=== PATIENT | female | born 1960 | race Caucasian/White ===

== ENCOUNTER 2017-12-05 09:37 | Inpatient (IN) | payer MEDICARE, OTHER ==
--- NOTE | 2017-12-05 10:55 | RAD ---
PORTABLE CHEST 1 VIEW: DATE: 12/05/17. TIME: 8:09 a.m. HISTORY: Chest pain. FINDINGS/IMPRESSION: The heart size is borderline. The aorta is tortuous. The lungs are expanded without lobar consolida tion, pneumothoraces, glendy pulmonary edema, or large effusions. POS: REID
[2017-12-05 10:56] LABS: ALT (SGPT) 11 U/L (8-55); AST (SGOT) 21 U/L (5-34); Albumin 3.2 g/dL (3.5-5.0); Alkaline Phosphatase 114 U/L (40-150); Anion Gap 12 mmol/L (10-20); BUN (Urea Nitrogen) 28 mg/dL (9.8-20.1); Bilirubin, Total 0.4 mg/dL (0.2-1.2); CK (CPK) 65 U/L (29-168); Calc. Creatinine Clearance 0 mL/min (70-130); Calcium 9.3 mg/dL (7.8-10.44); Carbon Dioxide 33 mmol/L (22-29); Chloride 90 mmol/L (98-107); Estimated GFR-MDRD 36; Globulin 3.8 g/dL (2.4-3.5); Glucose 120 mg/dL (70-105); Sodium 132 mmol/L (136-145)
[2017-12-05 11:01] LABS: CKMB 0.6 ng/mL (0-6.6); Troponin I 0.017 ng/mL (< 0.028)
[2017-12-05 11:04] LABS: #Lymphocytes 0.4 thou/uL (1.20-3.40); #Monocytes 0.2 thou/uL (0.11-0.59); %Basophils 0.5 % (0.0-1.0); %Eosinophils 0.6 % (0.0-10.0); %Lymphocytes 10.4 % (21.0-51.0); %Monocytes 4.2 % (0.0-10.0); %Neutrophils 84.3 % (42.0-75.0); Hemoglobin 12.3 g/dL (12.0-16.0); Mean Corpuscular HGB CONC 33.4 g/dL (32.0-36.0); Mean Corpuscular Hemoglobin 31.3 pg (27.0-31.0); Mean Corpuscular Volume 93.7 fl (81.0-99.0); PLT Morphology Comment Appears Decreased; Platelet Count 94 thou/uL (130-400); RBC Distribution Width 13.1 % (11.5-14.5); Red Blood Cell (RBC) Count 3.93 mill/uL (4.20-5.40); White Blood Cell (WBC) Count 3.6 thou/uL (4.8-10.8)
[2017-12-05 11:07] LABS: Potassium 2.9 mmol/L (3.5-5.1)
[2017-12-05] MEDS ORDERED: Potassium Chloride 20 MEQ TAB ONE (11:09)
[2017-12-05] MEDS ORDERED: Vancomycin HCl 1 GM in Premix Bag 1 BAG IVPB SCH (11:15)
[2017-12-05] MEDS ORDERED: Azithromycin 500 MG in Sodium Chloride 0.9% 250 ML 250 ML IVPB SCH (11:15)
[2017-12-05 14:30] LABS: Troponin I 0.026 ng/mL (< 0.028)
[2017-12-05] MEDS ORDERED: Ondansetron HCl/PF 4 MG/2 ML Vial IVP PRN (15:15)
[2017-12-05] MEDS ORDERED: Ondansetron ODT 4 MG TAB SL PRN (15:15)
[2017-12-05 15:19] VITALS: BMI 35.8
[2017-12-05] MEDS ORDERED: Acetaminophen 325 MG TAB PO PRN (15:28)
[2017-12-05] MEDS ORDERED: Guaifenesin DM 100-10/5 ML UDCUP PO PRN (16:00)
--- NOTE | 2017-12-05 17:00 | CON ---
DATE OF CONSULTATION: 12/05/2017 CONSULTING PHYSICIAN: Dr. Gaming. REASON FOR CONSULTATION: Chest congestion. HISTORY OF PRESENT ILLNESS: History is obtained by speaking with the patient and by reviewing records in her chart. She is an unfortunate 57-year-old female who has multitude medical problems. She came to the ER today with an 11- day history of cough, fever up to 100.5 and postnasal drip. She has also been more short of breath over the last couple of days. Her mother just got discharged from the hospital. The patient says her mother was in the hospital because of influenza. The patient apparently did not take a flu shot and does not know whether or not she was previously flu tested. PAST MEDICAL AND SURGICAL HISTORY: 1. Stroke 2. Anemia. 3. Hyperparathyroidism, requiring parathyroid removal. 4. Nephrogenic systemic fibrosis. 5. Degenerative joint disease. 6. Neuropathy. 7. Bipolar disorder. 8. Obesity. 9. Mitral valve insufficiency. 10. Chronic atrial fibrillation. 11. Vasculitis. 12. Seizure disorders. 13. Brain aneurysm. 14. Cardiac ablation. 15. Vascular access placement for photophoresis. 16. Right knee graft placement. 17. Skin grafts. 18. Tonsillectomy. 19. Ventricular peritoneal shunt. 20. Placement of a spinal stimulator. ALLERGIES: Multiple and include CEFUROXIME, KETOROLAC, CIPRO, TRAMADOL, ANTI- INFLAMMATORY MEDICATIONS, PENICILLIN, TETRACYCLINE, SULFA, ASPIRIN, ACETAMINOPHEN, NAPROXEN, AMPICILLIN, LAMICTAL and CEFEPIME. SOCIAL HISTORY: Smoked up until 1989. Does not smoke currently. Does not use alcohol. FAMILY MEDICAL HISTORY: Otherwise, unremarkable. MEDICATIONS PRIOR TO ADMISSION: Requip, hydroxyzine, Benadryl, Ambien, vitamin B complex, vitamin A, Coenzyme Q10, [place] Thyroid, Restasis, ranitidine, multivitamin, vitamin B5, Robaxin, DuoNeb, grape seed extract, folate, iron sulfate, Epogen, Depakote, Lanoxin, cranberry, cholecalciferol, calcitriol, Bromaline, biotin, [place] eyedrops, ascorbic acid and amiodarone. REVIEW OF SYSTEMS: Notable for congestion; previous tracheostomy; pacemaker for the heart, it is actually placed in her abdomen because they had to obtain access through femoral vein; diffuse chronic rash bilaterally, otherwise 12- point review of systems negative. PHYSICAL EXAMINATION: VITAL SIGNS: Temperature 98.5, pulse 102, respirations 14 and O2 sat 93% on 3 liters. HEENT: She is wearing dark glasses because of light. Oropharynx clear. NECK: No JVD. She has a previous midline tracheostomy placement scar, which is well healed. LUNGS: Coarse breath sounds bilaterally with some crackles at the bases. CARDIAC: S1 and S2 regular. ABDOMEN: Soft, obese and nontender. EXTREMITIES: She has diffuse edematous rash over extremities bilaterally. LABORATORY DATA: Sodium 132, potassium 2.9, chloride 90, CO2 of 33, BUN 28, creatinine 1.4 and glucose 120. White blood cell count 3.6, hematocrit 36.8 and platelet count 94. IMAGING DATA: Her chest x-ray was reviewed personally by myself. It shows fairly clear lung wall. There is no evidence of effusion. She has some leads present posterior to her heart; I think these are probably spinal stimulation electrodes. I do not see any cardiac pacer leads. ASSESSMENT: 1. Upper respiratory infection - no evidence of pneumonia on x-ray. 2. Multiple allergies. 3. History of nephrogenic systemic fibrosis. 4. Hyperparathyroidism. 5. History of chronic atrial fibrillation and chronic cardiac problems. RECOMMENDATIONS: Agree with the azithromycin, steroids and breathing treatments. I will give her some cough suppressant medication if needed. I would suggest consulting her quality control expert if her heart becomes more of a concern. Influenza rapid test has been ordered. 70 minutes time was spent on this consultation. Of those 70 min, greater than 50% of the time was spent on counseling and coordination of care MTDD
[2017-12-05 17:03] LABS: Troponin I 0.028 ng/mL (< 0.028)
--- NOTE | 2017-12-05 17:47 | HP ---
PRIMARY CARE PROVIDER: Dr. Butler. ORTHOPAEDIC TECHNOLOGIST: Eric Bautista M.D. SUPERVISOR FLOOR ASSEMBLY: Stevie Jackson M.D. HISTORY OF PRESENT ILLNESS: The patient states she has had a cough for 11 days, scant production occ asionally green, occasional streaks of blood. She is short of breath all the time rest, walking and lying. She states she is not very mobile. She has had some nausea, vomiting, diarrhea, and no blood in her emesis or her stools. She has had fever off and on up to 101.8. She has had night sweats da emmie. She was seen in the emergency room, diagnosis of pneumonia was made and she was referred for ad mission. PAST MEDICAL HISTORY: Extensive. She has a recent diagnosis of heart failure based on a BNP, but st ates she has not had an echocardiogram. She has a history of atrial fibrillation with rapid ventricu lar response. She has a history of a cerebrovascular accident in the past, chronic anemia, hyperpara thyroidism, degenerative joint disease, chronic neuropathy, nephrogenic systemic fibrosis, bipolar il lness, obesity, mitral valve insufficiency, chronic atrial fibrillation, lymphedema, chronic anticoag ulation secondary to chronic atrial fibrillation and vasculitis. She has had acute kidney failure, r equiring dialysis in the past. She has had seizures in the past. She has had a history of a brain a neurysm, status post coiled MAKEUP ARTIST shunt placement. PAST SURGICAL HISTORY: Post-EP evaluation, post-cardioversion, post-right vascular access placement, right total knee replacement, skin graft, cataract surgery, tonsillectomy, MAKEUP ARTIST shunt in 2000, hystere ctomy, and history of spinal stimulator. ALLERGIES: AMPICILLIN, CEFTIN, CIPRO, CLINDAMYCIN, DIFLUCAN, DOXYCYCLINE, FLAGYL, FOSFOMYCIN, LEVAQU IN, PENICILLIN, SULFA, TETRACYCLINE, ASPIRIN, CEFEPIME, GADOLINIUM CONTRAST, LINEZOLID, METRONIDAZOLE , MORPHINE, NSAIDS, OXYCODONE, SEROQUEL, TORADOL, TYLENOL, ZOLOFT, and LAMICTAL. CURRENT MEDICATIONS: Albuterol 2.5 nebulizer solution every 4 hours as needed, vitamin C and B compl ex, betamethasone cream, biotin tablets, budesonide 0.25 mg per 2 mL nebulizer once a day, Bumex 2 mg a day, Coenzyme Q10, cranberry, cyclobenzaprine 10 mg t.i.d. p.r.n., cyclosporine ophthalmic emulsio n, Costanzi solution swish and swallow every 6 hours as needed, Depakote 500 mg q.24 hours twice a da y, folic acid, hydromorphone 4 mg q.4 hours p.r.n., hydroxyzine 1 tablet every 8 hours p.r.n. itching , Keppra 500 mg twice a day, lorazepam 0.5 mg every 8 hours as needed, Zofran tablets 1 every 8 hours as needed, Requip 1 mg at night, Thyroid 90 mg tablets daily, timolol ophthalmic solution, tizanidin e 4 mg a day, and zolpidem 5 mg at bedtime. SOCIAL HISTORY: Former smoker. FULL CODE status. No alcohol. Next of kin is her mother. FAMILY HISTORY: No inheritable diseases. Mother is 78, alive and well. REVIEW OF SYSTEMS: Constitutional: Syncope last night, fell in the bathroom. She has had dizzy spe lls several times a day for 8 months. Eyes: She wears dark glasses. No double vision or blurred vi sheldon. She states she has glaucoma. Ears, Nose and Throat: Some dysphagia x4 days, has a history of same. No ear pain or drainage. No nasal bleeding. Cardiac: No chest pains, orthopnea or paroxysm al nocturnal dyspnea. Respirations: See present illness. Gastrointestinal: No abdominal pain. Ge nitourinary: No gross hematuria, no dysuria. Musculoskeletal: Swells in her hands and both legs. Neurologic: She had a stroke, seizures in 2000 from a brain aneurysm. Psychiatric: Bipolar. Skin: Dry skin. Heme/Lymph: No tender or swollen lymph nodes in axilla, inguinal or cervical area. PHYSICAL EXAMINATION: GENERAL: She is alert, oriented, and cooperative, in no distress. VITAL SIGNS: Pulse 102, temperature 98.5, respirations 14, O2 sat 93% on 3 liters, and blood pressur e 99/65. HEENT: Examination of her head, eyes, ears, nose, and throat reveal pupils equal, round, and reactiv e to light. Extraocular movements are intact. Sclerae are white. Tympanic membranes clear. Nose i s clear. Oral mucous membranes are wet. NECK: Supple, without jugular venous distention, adenopathy or thyromegaly. CHEST: Clear to percussion. She has coarse breath sounds and rhonchi in all wall. No focal findi ngs. HEART: Irregular rate and rhythm. First and second heart sounds were variable, 2/6 systolic murmur. ABDOMEN: Soft, bowel sounds normal. No hepatosplenomegaly, no mass, no rebound. EXTREMITIES: Reveal no cyanosis or clubbing. She has some stasis edema in her legs. SKIN: She has some chronic skin changes of stasis edema in her legs, some thinning of the skin of he r hands, some scattered bruising. HEME/LYMPH: No tender or swollen lymph nodes in axilla, inguinal or cervical area. NEUROLOGIC: Deep tendon reflexes grossly symmetric. Cranial nerves II through XII are intact. Move s all extremities. LABORATORY AND X-RAY FINDINGS: EKG: Atrial fibrillation with nonspecific ST-T changes, rate control led. Chest x-ray shows no evidence of acute pneumonia or CHF. Heart size appears normal, reviewed b y me. Sodium 132, potassium 2.9, chloride 90, CO2 of 33, BUN 28, creatinine 1.49, blood sugar 120. Troponins are normal x2. BNP is 134. White count 3.6, hemoglobin 12.3, and platelet count 94,000. ADMITTING DIAGNOSES: 1. Acute respiratory failure, hypoxemia. 2. Acute asthmatic bronchitis. 3. Atrial fibrillation with controlled response. 4. Nephrogenic systemic sclerosis. 5. Chronic anticoagulation. 6. Hypothyroidism. 7. Mitral insufficiency. 8. Seizure disorder. 9. Bipolar syndrome. PLAN: The patient was admitted to the ER with pneumonia, but I see no evidence of pneumonia. She do es have some lung disease with acute respiratory hypoxemic failure. She will be placed on O2, steroi ds, and nebs when adequately entered her home medicines will be continued. Dr. Rubalcava has been cons ulted for assistance in this case.
[2017-12-05] MEDS ORDERED: Albuterol Sulfate 2.5 mg/3 ml Neb NEB PRN (18:17)
[2017-12-05] MEDS ORDERED: Nystatin Powder 15 GM BOT TOP PRN (18:17)
[2017-12-05] MEDS ORDERED: EPINEPHrine 1 MG/10 ML Abboject SYRINGE IVP PRN (18:17)
[2017-12-05] MEDS ORDERED: [UNRECOGNIZED DRUG - REMARK] PO PRN (18:17)
[2017-12-05] MEDS ORDERED: Nystatin Cream 30 GM TUBE TOP PRN (18:17)
[2017-12-05] MEDS ORDERED: Benzonatate 100 MG CAP PO PRN (18:17)
[2017-12-05] MEDS ORDERED: Loratadine/Pseudoephedrine 10/240 mg Tablet PO PRN (18:17)
[2017-12-05] MEDS: rOPINIRole HCl 1 MG TAB PO SCH (20:40)
[2017-12-05] MEDS: levETIRAcetam 500 MG TAB PO SCH (20:40)
[2017-12-05] MEDS: Ondansetron ODT 4 MG TAB PO SCH (20:41)
[2017-12-05] MEDS: Lidocaine Patch Removal 1 EACH TOP SCH (20:41)
[2017-12-05] MEDS: Zolpidem Tartrate 5 MG TAB PO PRN (20:45)
[2017-12-05] MEDS ORDERED: BETAMETHASONE TOP SCH (21:00)
[2017-12-05] MEDS ORDERED: [UNRECOGNIZED DRUG - OTHER] TOP SCH (21:00)
[2017-12-05] MEDS ORDERED: PROPYLENE GLYC TOP SCH (21:00)
[2017-12-05] MEDS ORDERED: GRAPE SEED EXTRACT PO SCH (21:00)
[2017-12-06] MEDS: Ondansetron ODT 4 MG TAB PO SCH ×3 (06:16→20:21)
[2017-12-06 06:18] LABS: Hemoglobin 13.3 g/dL (12.0-16.0); MDiff Complete? YES; Mean Corpuscular HGB CONC 32.9 g/dL (32.0-36.0); Mean Corpuscular Volume 94.3 fl (81.0-99.0); Mean Platelet Volume 8.7 fL (7.4-10.4); Platelet Count 96 thou/uL (130-400); RBC Distribution Width 13.1 % (11.5-14.5); Red Blood Cell (RBC) Count 4.29 mill/uL (4.20-5.40); White Blood Cell (WBC) Count 1.4 thou/uL (4.8-10.8)
[2017-12-06 06:19] LABS: Band 5 % (5-11); Lymphocytes 34 % (21-51); Monocytes 4 % (0-10); Neutrophil 56 % (42-75); Reactive Lymphocytes 1 % (0-10)
[2017-12-06 06:20] LABS: Anion Gap 12 mmol/L (10-20); BUN (Urea Nitrogen) 24 mg/dL (9.8-20.1); Calc. Creatinine Clearance 75 mL/min (70-130); Calcium 9.5 mg/dL (7.8-10.44); Carbon Dioxide 32 mmol/L (22-29); Chloride 94 mmol/L (98-107); Estimated GFR-MDRD 41; Glucose 142 mg/dL (70-105); Potassium 3.8 mmol/L (3.5-5.1); Sodium 134 mmol/L (136-145)
[2017-12-06] MEDS: Budesonide 0.25 MG/2 ML NEB NEB SCH (06:58)
--- NOTE | 2017-12-06 08:51 | PRG ---
DATE OF SERVICE: 12/06/2017 SUBJECTIVE: She did not sleep very well last night. Her influenza A test came back positive. OBJECTIVE: VITAL SIGNS: Temperature is 97.5, pulse 85, respirations 16, O2 sat 93% on 2 liters. HEENT: Unremarkable. NECK: No JVD. LUNGS: Less rhonchi than yesterday, but still some present. CARDIAC: S1 and S2 regular. ABDOMEN: Soft. EXTREMITIES: Trace edema. LABORATORY DATA: White blood cell count 1.4, hematocrit 40, platelet count 96. Sodium 134, potassiu m 3.8, chloride 94, CO2 32, BUN 24, creatinine 1.3, glucose 142. Cultures are growing out gram posit kady cocci 2 of 2 bottles. Of note, at least one of the specimens was drawn from the right femoral in dwelling catheter. ASSESSMENT: 1. Catheter related sepsis - patient has a chronic indwelling catheter that she has used for photoph oresis as an outpatient. 2. Influenza type A. 3. Multiple medical problems addressed in yesterday's note including a nephrogenic systemic fibrosis , hyperparathyroidism, and multiple allergies. RECOMMENDATIONS: 1. Continue IV antibiotics with Zithromax and vancomycin. 2. Consider ID opinion or removal of the catheter in the leg. 3. Probably too late for Tamiflu to be of any benefit in this patient for flu. She has had symptoms for over a week. I will leave that up to the primary team.
[2017-12-06] MEDS ORDERED: (Biotin [Biotin] 300 MCG) PO SCH (09:00)
[2017-12-06] MEDS ORDERED: Vancomycin HCl 1.5 GM in Sodium Chloride 0.9% 250 ML 300 ML IVPB SCH (09:00)
[2017-12-06] MEDS ORDERED: (Cranberry [Cranberry] 500 MG) PO SCH (09:00)
--- NOTE | 2017-12-06 09:07 | PDOC.PN ---
- Subjective Encounter Start Date: 12/06/17 Encounter Start Time: 09:04 Subjective: still doesnt feel well - Objective Resuscitation Status: Resuscitation Status FULL:Full Resuscitation MAR Reviewed: Yes Vital Signs & Weight: Vital Signs (12 hours) Temp Pulse Resp BP Pulse Ox 12/06/17 06:55 85 16 93 L 12/06/17 05:58 97.5 F L 97 18 130/73 95 12/06/17 01:31 98.1 F 100 18 124/74 93 L 12/06/17 00:27 16 Result Diagrams: 12/06/17 04:50 12/06/17 04:50 Phys Exam - Physical Examination Neck: no JVD coarse BS, non focal Cardiovascular: RRR, no significant murmur Gastrointestinal: soft, positive bowel sounds Musculoskeletal: no edema Dx/Plan (1) Acute respiratory failure with hypoxia Code(s): J96.01 - ACUTE RESPIRATORY FAILURE WITH HYPOXIA Status: Acute (2) Acute asthmatic bronchitis Code(s): J45.909 - UNSPECIFIED ASTHMA, UNCOMPLICATED Status: Acute (3) Influenza B Code(s): J10.1 - FLU DUE TO OTH IDENT INFLUENZA VIRUS W OTH RESP MANIFEST Status: Acute (4) Afib Code(s): I48.91 - UNSPECIFIED ATRIAL FIBRILLATION Status: Chronic Qualifiers: Atrial fibrillation type: paroxysmal Qualified Code(s): I48.0 - Paroxysmal atrial fibrillation Comment: Status post ablation, presently sinus (5) Bipolar 1 disorder Code(s): F31.9 - BIPOLAR DISORDER, UNSPECIFIED Status: Chronic Comment: Patient refused oral depakote. Subsequently changed back to IV. (6) Chronic anemia Code(s): D64.9 - ANEMIA, UNSPECIFIED Status: Chronic Comment: Procrit as per Nephrology. (7) GERD (gastroesophageal reflux disease) Code(s): K21.9 - GASTRO-ESOPHAGEAL REFLUX DISEASE WITHOUT ESOPHAGITIS Status: Chronic (8) Nephrogenic systemic fibrosis Code(s): L90.8 - OTHER ATROPHIC DISORDERS OF SKIN Status: Chronic (9) Seizure disorder Code(s): G40.909 - EPILEPSY, UNSP, NOT INTRACTABLE, WITHOUT STATUS EPILEPTICUS Status: Chronic Comment: Continue depakote (10) Bacteremia associated with IV line Code(s): T82.7XXA - INFECT/INFLM REACT D/T OTH CARDI/VASC DEV/IMPLNT/GRFT, INIT ; R78.81 - BACTEREMIA Status: Acute - Plan 2/2 blood C&S pos gm pos cocci -: has indwelling R groin caath- DC. start periferal iv -: iv vanc plus zithromax -: cont nebs steroids. too late for tamiflu * .
[2017-12-06] MEDS: Cyclobenzaprine 10 MG TAB PO SCH (09:25)
[2017-12-06] MEDS: Ascorbic Acid 500 mg Chewable Tablet PO SCH (09:25)
[2017-12-06] MEDS: Lactinex Tablet PO SCH (09:25)
[2017-12-06] MEDS: levETIRAcetam 500 MG TAB PO SCH ×2 (09:26→20:20)
[2017-12-06] MEDS: Folic Acid 1 MG TAB PO SCH (09:28)
[2017-12-06] MEDS: Multivit, Therapeutic 1 TAB PO SCH (09:28)
[2017-12-06] MEDS: Vitamin A 10,000 UNITS CAP PO SCH (09:29)
[2017-12-06] MEDS: tiZANidine HCl 4 MG TAB PO SCH ×2 (09:29→13:03)
[2017-12-06] MEDS: Lubiprostone 24 MCG CAP PO SCH ×2 (09:30→18:34)
[2017-12-06] MEDS: Ubidecarenone 50 MG CAP PO SCH (09:30)
[2017-12-06] MEDS: Bumetanide 1 MG TAB PO SCH (09:31)
[2017-12-06] MEDS: Stress 600 With Zinc 1 TAB PO SCH (09:31)
[2017-12-06] MEDS: Heparin 1,000 UNITS/ML VIAL SLOW IVP SCH ×2 (09:32→10:46)
[2017-12-06] MEDS: Lidocaine 5% Patch TD SCH (09:33)
[2017-12-06] MEDS: F EA EYE SCH (09:34)
[2017-12-06] MEDS: cycloSPORINE 0.05% Ophthalmic Droperette EA EYE SCH (09:35)
[2017-12-06] MEDS: Vancomycin HCl 1.5 GM in Sodium Chloride 0.9% 250 ML 300 ML IVPB SCH (10:45)
[2017-12-06] MEDS: Azithromycin 500 MG in Sodium Chloride 0.9% 250 ML 250 ML IVPB SCH (13:02)
[2017-12-06] MEDS: HYDROmorphone 2 MG TAB PO PRN ×3 (13:06→23:29)
[2017-12-06] MEDS ORDERED: FLU VACC QS2017-18 36 mo. & older 0.5 ML SYRINGE IM ONE (19:45)
[2017-12-06] MEDS: rOPINIRole HCl 1 MG TAB PO SCH (20:20)
[2017-12-06] MEDS: Lidocaine Patch Removal 1 EACH TOP SCH (20:21)
[2017-12-06] MEDS: Zolpidem Tartrate 5 MG TAB PO PRN (21:10)
[2017-12-07] MEDS ORDERED: Metoprolol Tartrate 25 MG TAB PO SCH (02:30)
[2017-12-07 02:59] LABS: #Lymphocytes 0.4 thou/uL (1.20-3.40); #Monocytes 0.2 thou/uL (0.11-0.59); #Neutrophils 3.2 thou/uL (1.40-6.50); %Basophils 0.9 % (0.0-1.0); %Eosinophils 0.3 % (0.0-10.0); %Lymphocytes 10.3 % (21.0-51.0); %Monocytes 5.3 % (0.0-10.0); %Neutrophils 83.2 % (42.0-75.0); Hemoglobin 12.1 g/dL (12.0-16.0); Mean Corpuscular HGB CONC 33.9 g/dL (32.0-36.0); Mean Corpuscular Hemoglobin 31.9 pg (27.0-31.0); Mean Corpuscular Volume 94.2 fl (81.0-99.0); Mean Platelet Volume 8.2 fL (7.4-10.4); Platelet Count 108 thou/uL (130-400); RBC Distribution Width 13.3 % (11.5-14.5); Red Blood Cell (RBC) Count 3.79 mill/uL (4.20-5.40); White Blood Cell (WBC) Count 3.8 thou/uL (4.8-10.8)
[2017-12-07 03:00] LABS: Anion Gap 11 mmol/L (10-20); BUN (Urea Nitrogen) 28 mg/dL (9.8-20.1); Calc. Creatinine Clearance 69 mL/min (70-130); Calcium 9.4 mg/dL (7.8-10.44); Carbon Dioxide 33 mmol/L (22-29); Chloride 94 mmol/L (98-107); Estimated GFR-MDRD 37; Glucose 205 mg/dL (70-105); Potassium 3.3 mmol/L (3.5-5.1); Sodium 135 mmol/L (136-145)
[2017-12-07] MEDS: HYDROmorphone 2 MG TAB PO PRN ×2 (05:39→16:33)
[2017-12-07] MEDS: Ondansetron ODT 4 MG TAB PO SCH ×3 (05:39→20:21)
[2017-12-07] MEDS: Budesonide 0.25 MG/2 ML NEB NEB SCH (06:54)
[2017-12-07] MEDS: Lidocaine 5% Patch TD SCH (08:59)
[2017-12-07] MEDS: Lactinex Tablet PO SCH (09:00)
[2017-12-07] MEDS: Cyclobenzaprine 10 MG TAB PO SCH (09:00)
[2017-12-07] MEDS: Ubidecarenone 50 MG CAP PO SCH (09:01)
[2017-12-07] MEDS: Bumetanide 1 MG TAB PO SCH (09:01)
[2017-12-07] MEDS: Lubiprostone 24 MCG CAP PO SCH ×2 (09:03→18:30)
[2017-12-07] MEDS: Ascorbic Acid 500 mg Chewable Tablet PO SCH (09:04)
[2017-12-07] MEDS: cycloSPORINE 0.05% Ophthalmic Droperette EA EYE SCH (09:05)
[2017-12-07] MEDS: Vitamin A 10,000 UNITS CAP PO SCH (09:05)
[2017-12-07] MEDS: levETIRAcetam 500 MG TAB PO SCH ×2 (09:05→20:17)
[2017-12-07] MEDS: Folic Acid 1 MG TAB PO SCH (09:05)
[2017-12-07] MEDS: tiZANidine HCl 4 MG TAB PO SCH ×2 (09:05→12:19)
[2017-12-07] MEDS: Heparin 1,000 UNITS/ML VIAL SLOW IVP SCH (09:05)
[2017-12-07] MEDS: Multivit, Therapeutic 1 TAB PO SCH (09:05)
[2017-12-07] MEDS: F EA EYE SCH (09:05)
[2017-12-07] MEDS: Stress 600 With Zinc 1 TAB PO SCH (09:05)
--- NOTE | 2017-12-07 09:07 | PDOC.PN ---
- Subjective Encounter Start Date: 12/07/17 Encounter Start Time: 09:05 Subjective: sharp, sticky chest pains, palpatotions - Objective Resuscitation Status: Resuscitation Status FULL:Full Resuscitation MAR Reviewed: Yes Vital Signs & Weight: Vital Signs (12 hours) Temp Pulse Resp BP Pulse Ox 12/07/17 07:37 98.4 F 91 16 129/81 91 L 12/07/17 06:54 91 16 12/07/17 05:52 98.4 F 95 20 106/71 95 12/07/17 05:15 98.3 F 106 H 18 108/69 94 L 12/07/17 00:10 116 H 18 88 L 12/06/17 21:20 107 H 18 86 L Weight Admit Weight 228 lb 8 oz Weight 228 lb 8 oz Result Diagrams: 12/07/17 02:30 12/07/17 02:30 Phys Exam - Physical Examination Neck: no JVD coarse, occ rhonchi Cardiovascular: irregular Gastrointestinal: soft, non-tender, positive bowel sounds Musculoskeletal: no edema Dx/Plan (1) Acute respiratory failure with hypoxia Code(s): J96.01 - ACUTE RESPIRATORY FAILURE WITH HYPOXIA Status: Acute (2) Acute asthmatic bronchitis Code(s): J45.909 - UNSPECIFIED ASTHMA, UNCOMPLICATED Status: Acute (3) Influenza B Code(s): J10.1 - FLU DUE TO OTH IDENT INFLUENZA VIRUS W OTH RESP MANIFEST Status: Acute (4) Afib Code(s): I48.91 - UNSPECIFIED ATRIAL FIBRILLATION Status: Chronic Qualifiers: Atrial fibrillation type: paroxysmal Qualified Code(s): I48.0 - Paroxysmal atrial fibrillation Comment: Status post ablation, presently sinus (5) Bipolar 1 disorder Code(s): F31.9 - BIPOLAR DISORDER, UNSPECIFIED Status: Chronic Comment: Patient refused oral depakote. Subsequently changed back to IV. (6) Chronic anemia Code(s): D64.9 - ANEMIA, UNSPECIFIED Status: Chronic Comment: Procrit as per Nephrology. (7) GERD (gastroesophageal reflux disease) Code(s): K21.9 - GASTRO-ESOPHAGEAL REFLUX DISEASE WITHOUT ESOPHAGITIS Status: Chronic (8) Nephrogenic systemic fibrosis Code(s): L90.8 - OTHER ATROPHIC DISORDERS OF SKIN Status: Chronic (9) Seizure disorder Code(s): G40.909 - EPILEPSY, UNSP, NOT INTRACTABLE, WITHOUT STATUS EPILEPTICUS Status: Chronic Comment: Continue depakote (10) Bacteremia associated with IV line Code(s): T82.7XXA - INFECT/INFLM REACT D/T OTH CARDI/VASC DEV/IMPLNT/GRFT, INIT ; R78.81 - BACTEREMIA Status: Acute - Plan cont iv vancomycin -: EKG, serial troponins, D-dimer * .
[2017-12-07] MEDS: Vancomycin HCl 1.5 GM in Sodium Chloride 0.9% 250 ML 300 ML IVPB SCH (09:14)
[2017-12-07] MEDS: Azithromycin 500 MG in Sodium Chloride 0.9% 250 ML 250 ML IVPB SCH (12:20)
--- NOTE | 2017-12-07 12:38 | PQF ---
CLINICAL DOCUMENTATION IMPROVEMENT CLARIFICATION FORM: ICD-10 Updated PLEASE DO AN ADDENDUM TO THE PROGRESS NOTE WITH ANY DOCUMENTATION UPDATES OR ADDITIONS AND CARRY THROUGH TO DC SUMMARY. THANK YOU. DATE: 12/07 ATTN: DR. NO PORTILLO Please exercise your independent, professional judgment in responding to the clarification form. Clinical indicators are provided on the bottom of this form for your review. Please check appropriate box(s): Conflicting documentation was noted in the Medical Record, please clarify if patient is being treated/monitored for: [ x ] CATHETER RELATED SEPSIS - PT HAS A CHRONIC INDWELLING CATHETER THAT SHE HAS USED FOR PHOTOPHORESIS AN OUTPT (PULMONOLOGY PN 12/06) [ ] BACTEREMIA ASSOCIATED WITH IV LINE, ACUTE (ATTENDING PN 12/06 & ) [ ] Other diagnosis [ ] Unable to determine For continuity of documentation, please document condition throughout progress notes and discharge summary. Thank You. CLINICAL INDICATORS - SIGNS / SYMPTOMS/ LABS ER NURSING DOCUMENTATION 12/05: R FEMORAL DL CENTRAL LINE CATHETER PRESENT ATTENDING PHYSICIAN H&P DOCUMENTATION 12/05: HX OF PRESENT ILLNESS: SHE HAS HAD FEVER OFF & ON UP TO 101.8. SHE HAS HAD NIGHT SWEATS DAILY. PHYSICAL EXAM: NE: 102 WBC: 3.6 ADMITTING DIAGNOSES: ACUTE RESPIRATORY FAILURE, HYPOXEMIA RISK FACTORS: POSITIVE BLOOD CULTURES 2 OF 2 (ONE FROM R FEMORAL CENTRAL LINE) GRAM POSITIVE COCCI FEVERS AT HOME (101.8 HIGHEST) INFLUENZA A TREATMENT: IV ANTIBIOTICS (VANCOMYCIN & AZITHROMYCIN 12/05 - PRESENT) REMOVAL OF R FEMORAL CENTRAL LINE THANK YOU! Julienne (This form is maintained as a part of the permanent medical record) 2015 [employer]. All Rights Reserved Julienne Barclay RN, BSN [email or web address] Office: [phone] [facility]ITAL[facility]ast[facility]
--- NOTE | 2017-12-07 13:34 | PRG ---
DATE OF SERVICE: 12/07/2017 SUBJECTIVE: The patient is doing reasonably well compared to the other day. OBJECTIVE: VITAL SIGNS: Temperature 98.1, pulse 113, respirations 20, O2 sat 89% on room air, and blood pressur e 139/88. HEENT: Unremarkable. NECK: No JVD. LUNGS: Fairly clear. CARDIAC: S1 and S2, regular. ABDOMEN: Soft. EXTREMITIES: Trace edema throughout. Cultures are growing alpha hemolytic strep. LABORATORY DATA: White blood cell count 3.8, hematocrit 35.7, platelet count 108. Sodium 135, potas sium 3.3, chloride 94, CO2 of 33, BUN 20, creatinine 1.4, glucose 205. ASSESSMENT: 1. Catheter related sepsis - She has indwelling right leg vascath for photophoresis. 2. Influenza B. 3. Multiple medical problems as listed above. RECOMMENDATIONS: I would advocate discontinuing the catheter if at all possible. For the time being , she is to continue on antibiotics and is showing improvement in the white blood cell count. I thin k we should go ahead and try to wean her steroid dose some.
--- NOTE | 2017-12-07 15:40 | EKG ---
Test Reason : Blood Pressure : / mmHG Vent. Rate : 101 BPM Atrial Rate : 108 BPM P-R Int : 000 ms QRS Dur : 134 ms QT Int : 340 ms P-R-T Axes : 000 -28 061 degrees QTc Int : 440 ms Indetrmiate rhythm due to artifact. Non-specific intra-ventricular conduction block Cannot rule out Anterior infarct , age undetermined Abnormal ECG Confirmed by NICOLE RAE ([id number]) on 12/07/2017 3:40:02 PM Referred By: Confirmed By:NICOLE RAE
--- NOTE | 2017-12-07 15:42 | EKG ---
Test Reason : Blood Pressure : / mmHG Vent. Rate : 097 BPM Atrial Rate : 122 BPM P-R Int : 000 ms QRS Dur : 100 ms QT Int : 354 ms P-R-T Axes : 000 -33 048 degrees QTc Int : 449 ms Atrial fibrillation Left axis deviation Low voltage QRS Abnormal ECG Confirmed by NICOLE RAE ([id number]) on 12/07/2017 3:42:17 PM Referred By: MANNY Confirmed By:NICOLE RAE
[2017-12-07 16:57] LABS: Troponin I 0.022 ng/mL (< 0.028)
[2017-12-07 20:07] LABS: Troponin I 0.022 ng/mL (< 0.028)
[2017-12-07] MEDS: rOPINIRole HCl 1 MG TAB PO SCH (20:20)
[2017-12-07] MEDS: Zolpidem Tartrate 5 MG TAB PO PRN (20:20)
[2017-12-07] MEDS: Lidocaine Patch Removal 1 EACH TOP SCH (20:21)
[2017-12-08] MEDS: Lorazepam 0.5 MG TAB PO PRN (00:18)
[2017-12-08] MEDS: HYDROmorphone 2 MG TAB PO PRN ×4 (00:18→23:59)
[2017-12-08] MEDS: Ondansetron ODT 4 MG TAB PO SCH ×3 (04:47→20:01)
[2017-12-08] MEDS: Budesonide 0.25 MG/2 ML NEB NEB SCH (07:57)
[2017-12-08] MEDS: Ondansetron ODT 4 MG TAB PO PRN ×2 (08:45→18:06)
[2017-12-08] MEDS: F EA EYE SCH (08:48)
[2017-12-08] MEDS: Bumetanide 1 MG TAB PO SCH (08:50)
[2017-12-08] MEDS: Lactinex Tablet PO SCH (08:50)
[2017-12-08] MEDS: tiZANidine HCl 4 MG TAB PO SCH (08:51)
[2017-12-08] MEDS: Lubiprostone 24 MCG CAP PO SCH ×2 (08:51→17:57)
[2017-12-08] MEDS: Ubidecarenone 50 MG CAP PO SCH (08:51)
[2017-12-08] MEDS: Cyclobenzaprine 10 MG TAB PO SCH (08:51)
[2017-12-08] MEDS: Heparin 1,000 UNITS/ML VIAL SLOW IVP SCH (08:52)
[2017-12-08] MEDS: Ascorbic Acid 500 mg Chewable Tablet PO SCH (08:52)
[2017-12-08] MEDS: Folic Acid 1 MG TAB PO SCH (08:52)
[2017-12-08] MEDS: Multivit, Therapeutic 1 TAB PO SCH (08:53)
[2017-12-08] MEDS: Stress 600 With Zinc 1 TAB PO SCH (08:53)
[2017-12-08] MEDS: levETIRAcetam 500 MG TAB PO SCH ×2 (08:53→19:58)
[2017-12-08] MEDS: cycloSPORINE 0.05% Ophthalmic Droperette EA EYE SCH (08:53)
[2017-12-08] MEDS: Vitamin A 10,000 UNITS CAP PO SCH (08:54)
[2017-12-08] MEDS: Lidocaine 5% Patch TD SCH (08:56)
[2017-12-08 08:59] LABS: Vancomycin, Trough 22.9 ug/mL
[2017-12-08] MEDS: Vancomycin HCl 1.5 GM in Sodium Chloride 0.9% 250 ML 300 ML IVPB SCH (09:03)
--- NOTE | 2017-12-08 09:50 | PRG ---
DATE OF SERVICE: 12/08/2017 SUBJECTIVE: The patient is basically complaining about everything that she can. OBJECTIVE: VITAL SIGNS: Temperature is 98.2, pulse 110, blood pressure 104/65, O2 sat 95% on 3.5 liters. HEENT: Unremarkable. NECK: No JVD. CHEST: Clear. CARDIAC: S1 and S2, regular. ABDOMEN: Soft. EXTREMITIES: She has the chronic skin changes over all extremities. LABORATORY DATA: White blood cell count 3.8, hematocrit 35.7, and platelet count 108. Cultures are growing alpha hemolytic strep. ASSESSMENT: 1. Catheter-related sepsis. 2. Influenza. PLAN: 1. Continue antibiotics. 2. Wean steroids as tolerated. 3. We would advise removal of the catheter in the leg.
--- NOTE | 2017-12-08 10:23 | PDOC.PN ---
- Subjective Encounter Start Date: 12/08/17 Encounter Start Time: 10:21 Subjective: less sob - Objective Resuscitation Status: Resuscitation Status FULL:Full Resuscitation MAR Reviewed: Yes Vital Signs & Weight: Vital Signs (12 hours) Temp Pulse Resp BP BP Pulse Ox 12/08/17 08:48 110 H 104/65 12/08/17 08:00 98.0 F 109 H 18 119/71 93 L 12/08/17 07:57 110 H 16 12/08/17 00:15 91 18 96 Weight Admit Weight 228 lb 8 oz Weight 228 lb 8 oz Result Diagrams: 12/07/17 02:30 12/07/17 02:30 Phys Exam - Physical Examination Neck: no JVD coarse BS with scattered rhonchi Cardiovascular: irregular 2/6 sys murmur Gastrointestinal: soft, positive bowel sounds Musculoskeletal: edema present Dx/Plan (1) Acute respiratory failure with hypoxia Code(s): J96.01 - ACUTE RESPIRATORY FAILURE WITH HYPOXIA Status: Acute (2) Acute asthmatic bronchitis Code(s): J45.909 - UNSPECIFIED ASTHMA, UNCOMPLICATED Status: Acute (3) Influenza B Code(s): J10.1 - FLU DUE TO OTH IDENT INFLUENZA VIRUS W OTH RESP MANIFEST Status: Acute (4) Afib Code(s): I48.91 - UNSPECIFIED ATRIAL FIBRILLATION Status: Chronic Qualifiers: Atrial fibrillation type: paroxysmal Qualified Code(s): I48.0 - Paroxysmal atrial fibrillation Comment: Status post ablation, presently sinus (5) Bipolar 1 disorder Code(s): F31.9 - BIPOLAR DISORDER, UNSPECIFIED Status: Chronic Comment: Patient refused oral depakote. Subsequently changed back to IV. (6) Chronic anemia Code(s): D64.9 - ANEMIA, UNSPECIFIED Status: Chronic Comment: Procrit as per Nephrology. (7) GERD (gastroesophageal reflux disease) Code(s): K21.9 - GASTRO-ESOPHAGEAL REFLUX DISEASE WITHOUT ESOPHAGITIS Status: Chronic (8) Nephrogenic systemic fibrosis Code(s): L90.8 - OTHER ATROPHIC DISORDERS OF SKIN Status: Chronic (9) Seizure disorder Code(s): G40.909 - EPILEPSY, UNSP, NOT INTRACTABLE, WITHOUT STATUS EPILEPTICUS Status: Chronic Comment: Continue depakote (10) Bacteremia associated with IV line Code(s): T82.7XXA - INFECT/INFLM REACT D/T OTH CARDI/VASC DEV/IMPLNT/GRFT, INIT ; R78.81 - BACTEREMIA Status: Acute - Plan still requiring O2 supplementation -: cont nebs, iv steroids -: cont iv antibx for bacteremia * .
[2017-12-08] MEDS: Vancomycin HCl 1.25 GM in Sodium Chloride 0.9% 250 ML 250 ML IVPB SCH (10:38)
[2017-12-08] MEDS: Azithromycin 500 MG in Sodium Chloride 0.9% 250 ML 250 ML IVPB SCH (13:30)
[2017-12-08] MEDS ORDERED: Lidocaine 1% w/Epinephrine 1:100K 20 ML VIAL FS SCH (17:00)
[2017-12-08] MEDS: rOPINIRole HCl 1 MG TAB PO SCH (20:00)
[2017-12-08] MEDS: Lidocaine Patch Removal 1 EACH TOP SCH (20:00)
[2017-12-08] MEDS: Zolpidem Tartrate 5 MG TAB PO PRN (20:04)
[2017-12-09] MEDS: HYDROmorphone 2 MG TAB PO PRN ×2 (05:54→12:55)
[2017-12-09] MEDS: Budesonide 0.25 MG/2 ML NEB NEB SCH (07:51)
[2017-12-09] MEDS: Ondansetron ODT 4 MG TAB PO SCH ×3 (08:22→21:39)
[2017-12-09] MEDS: Bumetanide 1 MG TAB PO SCH (08:31)
[2017-12-09] MEDS: Lubiprostone 24 MCG CAP PO SCH ×2 (08:31→18:11)
[2017-12-09] MEDS: Stress 600 With Zinc 1 TAB PO SCH (08:32)
[2017-12-09] MEDS: Vitamin A 10,000 UNITS CAP PO SCH (08:33)
[2017-12-09] MEDS: Lactinex Tablet PO SCH (08:33)
[2017-12-09] MEDS: Ascorbic Acid 500 mg Chewable Tablet PO SCH (08:34)
[2017-12-09] MEDS: tiZANidine HCl 4 MG TAB PO SCH (08:34)
[2017-12-09] MEDS: levETIRAcetam 500 MG TAB PO SCH ×2 (08:34→21:38)
[2017-12-09] MEDS: Multivit, Therapeutic 1 TAB PO SCH (08:35)
[2017-12-09] MEDS: Folic Acid 1 MG TAB PO SCH (08:35)
[2017-12-09] MEDS: Cyclobenzaprine 10 MG TAB PO SCH (08:35)
[2017-12-09] MEDS: Ubidecarenone 50 MG CAP PO SCH (08:36)
[2017-12-09] MEDS: Heparin 1,000 UNITS/ML VIAL SLOW IVP SCH (08:36)
[2017-12-09] MEDS: F EA EYE SCH (08:37)
[2017-12-09] MEDS: cycloSPORINE 0.05% Ophthalmic Droperette EA EYE SCH (08:38)
[2017-12-09] MEDS: Lidocaine 5% Patch TD SCH (08:39)
[2017-12-09] MEDS: Vancomycin HCl 1.25 GM in Sodium Chloride 0.9% 250 ML 250 ML IVPB SCH (08:54)
--- NOTE | 2017-12-09 09:48 | PDOC.PULPN ---
Progress Note: Subj/Obj - Subjective Date: 12/09/17 Time: 09:47 Narrative: She feels somewhat better. - Objective Allergies/Adverse Reactions: Allergies Allergy/AdvReac Type Severity Reaction Status Date / Time acetaminophen Allergy Verified 09/23/15 00:36 ampicillin Allergy Verified 09/23/15 00:36 aspirin Allergy Verified 09/23/15 00:36 cefepime Allergy Verified 09/23/15 00:36 cefuroxime axetil Allergy Verified 09/23/15 00:36 [From Ceftin] ciprofloxacin [From Cipro] Allergy Verified 09/23/15 00:36 ciprofloxacin HCl Allergy Verified 09/23/15 00:36 [From Cipro] ketorolac tromethamine Allergy Verified 09/23/15 00:36 [From Toradol] lamotrigine [From Lamictal] Allergy Verified 09/23/15 00:36 levofloxacin [From Levaquin] Allergy Verified 09/23/15 00:36 naproxen Allergy Verified 09/23/15 00:36 NSAIDS (Non-Steroidal Allergy Verified 09/23/15 00:36 Anti-Inflamma Penicillins Allergy Verified 09/23/15 00:36 Sulfa (Sulfonamide Allergy Verified 09/23/15 00:36 Antibiotics) Tetracyclines Allergy Verified 09/23/15 00:36 tramadol HCl [From Ultram] Allergy Verified 10/03/15 00:07 MAR Reviewed: Yes Vital Signs: Vital Signs Temp 98.2 F 12/09/17 07:23 Pulse 108 H 12/09/17 08:37 Resp 20 12/09/17 07:50 BP 130/73 12/09/17 08:37 Pulse Ox 96 12/09/17 07:51 Intake & Output 12/08/17 12/09/17 12/09/17 18:59 06:59 18:59 Other: Voiding Method Bedside Commode Bedside Commode Progress Note: Exam - Physical Exam Constitutional: NAD HEENT: oral pharynx no lesions Neck: no nodes, no JVD Cardiovascular: RRR Respiratory: clear to auscultation bilaterally Gastrointestinal: soft, non-tender Musculoskeletal: edema present Neurological: non-focal, moves all 4 limbs Deviation from normal: She has chronic rashes throughout her extremities. Progress Note: Data - Labs Result Diagrams: 12/07/17 02:30 12/07/17 02:30 Progress Note: A/P - Problems (1) Acute asthmatic bronchitis Current Visit: Yes Status: Acute Code(s): J45.909 - UNSPECIFIED ASTHMA, UNCOMPLICATED (2) Acute respiratory failure with hypoxia Current Visit: Yes Status: Acute Code(s): J96.01 - ACUTE RESPIRATORY FAILURE WITH HYPOXIA (3) Bacteremia associated with IV line Current Visit: Yes Status: Acute Code(s): T82.7XXA - INFECT/INFLM REACT D/T OTH CARDI/VASC DEV/IMPLNT/GRFT, INIT; R78.81 - BACTEREMIA (4) Pneumonia Current Visit: No Status: Acute Code(s): J18.9 - PNEUMONIA, UNSPECIFIED ORGANISM (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 She is continuing on antibiotics. The hospitalist team is checking labs tomorrow. I will be available over the weekend if help is needed on this case. Please call.
[2017-12-09] MEDS ORDERED: Lidocaine 1% (PF) 30 ML VIAL ONE (09:59)
--- NOTE | 2017-12-09 11:20 | PDOC.PN ---
- Subjective Encounter Start Date: 12/09/17 Encounter Start Time: 09:50 denies any complaints this morning or acute night events - Objective Resuscitation Status: Resuscitation Status FULL:Full Resuscitation Vital Signs & Weight: Vital Signs (12 hours) Temp Pulse Resp BP BP Pulse Ox 12/09/17 08:37 108 H 130/73 12/09/17 07:51 96 12/09/17 07:50 116 H 20 96 12/09/17 07:23 98.2 F 108 H 16 130/73 96 12/09/17 02:55 96 Weight Admit Weight 228 lb 8 oz Weight 228 lb 8 oz Result Diagrams: 12/07/17 02:30 12/07/17 02:30 Phys Exam - Physical Examination Constitutional: NAD HEENT: PERRLA, moist MMs, sclera anicteric Neck: no nodes, no JVD, supple Respiratory: no wheezing, clear to auscultation bilateral Cardiovascular: RRR, no significant murmur Gastrointestinal: soft, non-tender, no distention Musculoskeletal: pulses present Psychiatric: normal affect, A&O x 3 Dx/Plan (1) Acute asthmatic bronchitis Code(s): J45.909 - UNSPECIFIED ASTHMA, UNCOMPLICATED Status: Acute (2) Acute respiratory failure with hypoxia Code(s): J96.01 - ACUTE RESPIRATORY FAILURE WITH HYPOXIA Status: Acute (3) Bacteremia associated with IV line Code(s): T82.7XXA - INFECT/INFLM REACT D/T OTH CARDI/VASC DEV/IMPLNT/GRFT, INIT ; R78.81 - BACTEREMIA Status: Acute (4) Pneumonia Code(s): J18.9 - PNEUMONIA, UNSPECIFIED ORGANISM Status: Acute (5) Afib Code(s): I48.91 - UNSPECIFIED ATRIAL FIBRILLATION Status: Chronic Qualifiers: Atrial fibrillation type: paroxysmal Qualified Code(s): I48.0 - Paroxysmal atrial fibrillation Comment: Status post ablation, presently sinus (6) Influenza Code(s): J11.1 - FLU DUE TO UNIDENTIFIED INFLUENZA VIRUS W OTH RESP MANIFEST Status: Acute - Plan cont current plan of care, plan discussed w/ family, continue antibiotics * . repeat Blood cultures contine with Vanc consulted ID due to complexity of her case with allergy to multiple Abx will remove line from right lower extremity
[2017-12-09] MEDS: Azithromycin 500 MG in Sodium Chloride 0.9% 250 ML 250 ML IVPB SCH (11:41)
[2017-12-09] MEDS ORDERED: Lidocaine 1% w/Epinephrine 1:100K 20 ML VIAL FS SCH (12:00)
--- NOTE | 2017-12-09 19:33 | OP ---
PREOPERATIVE DIAGNOSES: Bacteremia; cuffed tunneled femoral vein catheter, right. POSTOPERATIVE DIAGNOSES: Bacteremia; cuffed tunneled femoral vein catheter, right. PROCEDURE PERFORMED: Removal of cuffed tunneled dual lumen large bore catheter, right femoral vein. SURGEON: Dr. Ignacio Hernandez. ANESTHESIA: A 1% Xylocaine with epinephrine at the bedside. PROCEDURE IN DETAIL: At the patient's bedside, catheter exit site right thigh prepared with ChloraPr ep. Local anesthetic infiltrated into skin and subcutaneous tissue. A 1% Xylocaine with epinephrine was used, 10 mL. Catheter and cuff dissected free, removed intact. There was no purulence. The pa tient tolerated the procedure well. Pressure held to hemostasis.
[2017-12-09] MEDS: Lidocaine Patch Removal 1 EACH TOP SCH (21:38)
[2017-12-09] MEDS: rOPINIRole HCl 1 MG TAB PO SCH (21:39)
[2017-12-09] MEDS: Zolpidem Tartrate 5 MG TAB PO PRN (21:41)
[2017-12-10] MEDS: HYDROmorphone 2 MG TAB PO PRN ×3 (00:08→21:08)
[2017-12-10] MEDS ORDERED: tiZANidine HCl 4 MG TAB PO SCH (03:30)
[2017-12-10] MEDS: Ondansetron ODT 4 MG TAB PO SCH ×3 (05:38→21:07)
[2017-12-10 05:42] LABS: #Eosinphils 0.1 thou/uL (0.0-0.7); #Lymphocytes 0.8 thou/uL (1.20-3.40); #Monocytes 0.3 thou/uL (0.11-0.59); #Neutrophils 4.4 thou/uL (1.40-6.50); %Basophils 0.7 % (0.0-1.0); %Eosinophils 1.6 % (0.0-10.0); %Lymphocytes 14.7 % (21.0-51.0); %Monocytes 5.6 % (0.0-10.0); %Neutrophils 77.4 % (42.0-75.0); Hemoglobin 12.6 g/dL (12.0-16.0); Mean Corpuscular HGB CONC 32.7 g/dL (32.0-36.0); Mean Corpuscular Hemoglobin 31.1 pg (27.0-31.0); Mean Corpuscular Volume 95.2 fl (81.0-99.0); Mean Platelet Volume 7.4 fL (7.4-10.4); Platelet Count 165 thou/uL (130-400); RBC Distribution Width 13.2 % (11.5-14.5); Red Blood Cell (RBC) Count 4.05 mill/uL (4.20-5.40); White Blood Cell (WBC) Count 5.7 thou/uL (4.8-10.8)
[2017-12-10 05:53] LABS: Anion Gap 11 mmol/L (10-20); BUN (Urea Nitrogen) 35 mg/dL (9.8-20.1); Calc. Creatinine Clearance 84 mL/min (70-130); Calcium 9.2 mg/dL (7.8-10.44); Carbon Dioxide 35 mmol/L (22-29); Chloride 95 mmol/L (98-107); Estimated GFR-MDRD 47; Glucose 163 mg/dL (70-105); Potassium 4.2 mmol/L (3.5-5.1); Sodium 137 mmol/L (136-145)
[2017-12-10] MEDS: Budesonide 0.25 MG/2 ML NEB NEB SCH (06:31)
--- NOTE | 2017-12-10 07:26 | CON ---
DATE OF CONSULT: 12/09/2017 HISTORY OF PRESENT ILLNESS: Merle Shoemaker is a 57-year-old female who lives in [place], has been seen by Esthela Caraballo for the past 11 years for some sort of etic therapy. For chronic dis ease, she has nephrogenic systemic fibrosis. She has had a previous sepsis from left femoral vein ca theter. She has a pacemaker. She is admitted because of chest congestion, has had fever and positiv e cultures. I have been asked to see her regarding removal of her right femoral vein cuffed tunnel c atheter as it is likely the source of her bacteremia. PAST MEDICAL HISTORY: Stoke, anemia, hyperparathyroidism, nephrogenic systemic fibrosis, degenerativ e joint disease, neuropathy, bipolar disease, obesity, mitral valve prolapse, mitral valve insufficie ncy, vasculitis, seizure disorders, history of brain aneurysm, and cardiac ablation, vascular access for photopheresis, right knee graft, placement of skin graft, tonsillectomy, [employer]ICE [employer]OR shunt, hydrocephalus, placement of a spinal stimulator. ALLERGIES: CEPHALOSPORINS, KETOROLAC, CIPRO, TRAMADOL, ANTI-INFLAMMATORY MEDICATION, PENICILLIN, TET RACYCLINE, SULFA, ASPIRIN, ACETAMINOPHEN, NSAIDs, AMPICILLIN, and CEFEPIME. SOCIAL HISTORY: The patient is tobacco cessation since 1989. Alcohol, none. PAST SURGICAL HISTORY: Pacemakers, spinal stimulator, parathyroid resection, right femoral vein, cuf fed tunnel catheter, large-bore dual lumen, left femoral vein catheter previously removed with open w ound and infection, requiring wound VAC for several weeks. PHYSICAL EXAMINATION: VITAL SIGNS: 5 feet 7, 228 pounds, 35 BMI, 98.3, 97. HEAD, EYES, EARS, NOSE AND THROAT: Unremarkable. LUNGS: Clear to auscultation. CARDIAC: Regular rate and rhythm without murmur or gallop. ABDOMEN: Soft, obese. EXTREMITIES: Unremarkable. Right femoral vein catheter scars left groin, upper thigh area from past history of infection and open wound healing secondarily. LABORATORIES: White count 3, hemoglobin 12. Basic metabolic profile: BUN 28, creatinine 1.46, GFR 37. ASSESSMENT AND PLAN: Bacteremia with likely source right femoral vein cuffed tunnel catheter, we wou ld recommend removal and I will do at the bedside. I have explained the procedure to the patient. S he is agreeable.
[2017-12-10] MEDS: Bumetanide 1 MG TAB PO SCH (08:34)
[2017-12-10] MEDS: Lubiprostone 24 MCG CAP PO SCH ×2 (08:34→17:05)
[2017-12-10] MEDS: Folic Acid 1 MG TAB PO SCH (08:35)
[2017-12-10] MEDS: Heparin 1,000 UNITS/ML VIAL SLOW IVP SCH (08:35)
[2017-12-10] MEDS: Lactinex Tablet PO SCH (08:35)
[2017-12-10] MEDS: Stress 600 With Zinc 1 TAB PO SCH (08:36)
[2017-12-10] MEDS: Ubidecarenone 50 MG CAP PO SCH (08:37)
[2017-12-10] MEDS: Vitamin A 10,000 UNITS CAP PO SCH (08:37)
[2017-12-10] MEDS: Multivit, Therapeutic 1 TAB PO SCH (08:38)
[2017-12-10] MEDS: Ascorbic Acid 500 mg Chewable Tablet PO SCH (08:38)
[2017-12-10] MEDS: cycloSPORINE 0.05% Ophthalmic Droperette EA EYE SCH (08:39)
[2017-12-10] MEDS: levETIRAcetam 500 MG TAB PO SCH ×3 (08:40→21:11)
[2017-12-10] MEDS: tiZANidine HCl 4 MG TAB PO SCH (08:40)
[2017-12-10] MEDS: F EA EYE SCH (08:40)
[2017-12-10] MEDS: Cyclobenzaprine 10 MG TAB PO SCH ×2 (08:41→14:41)
[2017-12-10] MEDS: Lidocaine 5% Patch TD SCH (08:51)
[2017-12-10 09:30] LABS: Vancomycin, Trough 21.2 ug/mL
[2017-12-10] MEDS: Vancomycin HCl 1 GM in Premix Bag 1 BAG IVPB SCH (10:20)
--- NOTE | 2017-12-10 10:21 | PDOC.PN ---
- Subjective Encounter Start Date: 12/10/17 Encounter Start Time: 09:00 no acute night events. denies fever or chills - Objective Resuscitation Status: Resuscitation Status FULL:Full Resuscitation Vital Signs & Weight: Vital Signs (12 hours) Temp Pulse Resp BP Pulse Ox 12/10/17 08:40 102 H 12/10/17 07:18 97.3 F L 102 H 16 117/71 95 12/10/17 06:31 86 18 96 12/10/17 04:00 97.6 F 87 20 124/78 95 12/10/17 00:39 93 L 12/10/17 00:11 98 18 93 L 12/10/17 00:00 98.4 F 102 H 20 113/77 94 L Weight Admit Weight 228 lb 8 oz Weight 228 lb 8 oz Result Diagrams: 12/10/17 05:16 12/10/17 05:16 Phys Exam - Physical Examination Constitutional: NAD HEENT: PERRLA, moist MMs, sclera anicteric Neck: no nodes, supple Respiratory: no wheezing, no rales, no rhonchi, clear to auscultation bilateral Cardiovascular: RRR, no significant murmur Gastrointestinal: soft, non-tender, no distention Musculoskeletal: no edema, pulses present Psychiatric: normal affect, A&O x 3 Dx/Plan (1) Acute asthmatic bronchitis Code(s): J45.909 - UNSPECIFIED ASTHMA, UNCOMPLICATED Status: Acute (2) Acute respiratory failure with hypoxia Code(s): J96.01 - ACUTE RESPIRATORY FAILURE WITH HYPOXIA Status: Acute (3) Bacteremia associated with IV line Code(s): T82.7XXA - INFECT/INFLM REACT D/T OTH CARDI/VASC DEV/IMPLNT/GRFT, INIT ; R78.81 - BACTEREMIA Status: Acute (4) Pneumonia Code(s): J18.9 - PNEUMONIA, UNSPECIFIED ORGANISM Status: Acute (5) Afib Code(s): I48.91 - UNSPECIFIED ATRIAL FIBRILLATION Status: Chronic Qualifiers: Atrial fibrillation type: paroxysmal Qualified Code(s): I48.0 - Paroxysmal atrial fibrillation Comment: Status post ablation, presently sinus (6) Influenza Code(s): J11.1 - FLU DUE TO UNIDENTIFIED INFLUENZA VIRUS W OTH RESP MANIFEST Status: Acute - Plan cont current plan of care, continue antibiotics * . pending repeat cultures continue with current IV abx line removed from right lower extremity pending consultation with
[2017-12-10] MEDS: Azithromycin 500 MG in Sodium Chloride 0.9% 250 ML 250 ML IVPB SCH (12:35)
--- NOTE | 2017-12-10 15:20 | CON ---
DATE OF CONSULTATION: 12/10/2017 REASON FOR CONSULTATION: Bacteremia. 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 Subsequently, she developed what has been described as nephrogenic systemic fibrosis following MRI contrast administration in the face of renal insufficiency. Since then, she has had photophoresis, which was concluded, I believe last January in [place] and she is not supposed to receive anymore photopheresis. For those procedures of photophoresis, she required IV access and has had numerous central line catheters placed and has had complications associated with those in the past. She also has chronic pain syndrome, which she describes as pain everywhere with a spinal stimulator in place. She has had a [employer] shunt placed for management of hydrocephalus and I had seen her in 2014 for possible UTI. The patient has extensive reported drug hypersensitivity reactions, which are not really well documented, but the list of antibiotics that she is allergic to is quite extensive, pretty much leaving only vancomycin and macrolides. Again, the documentation of those allergic reactions is not very well reported in the medical records and it is possible that some of those reported allergies do not reflect true hypersensitivity. At this time, she was admitted with fever and general malaise, some nausea and vomiting. The initial findings showed pulse 102, temperature 98.5, respiratory rate 12-14, O2 sat 92%, blood pressure 99/ 65. Chest was remarkable for a few expiratory wheezes. Heart exam showed irregular rate with chronic skin changes noted and she had a catheter in the right groin, which has been used for IV fluid administration intermittently for management of volume depletion. Initial impression was possible respiratory failure, asthmatic bronchitis, atrial fibrillation, nephrogenic systemic sclerosis. Subsequently, blood samples obtained during the admission process showed Streptococcus sanguinous, broad susceptibility profile noted except for clindamycin, erythromycin, and tetracycline. The patient has been given azithromycin, vancomycin with improvement. Repeat blood culture sets from the had been negative thus far. She also had a positive influenza A test. Currently, she is awake, seems to be back to her baseline symptoms of pain over her entire body and structures as her baseline is. No headaches, no visual symptoms, sore throat, odynophagia, dysphagia, mild dyspnea, no cough, no abdominal pain or diarrhea. She is actually constipated. She is voiding without difficulty. She is ambulatory at home only with assistance with a walker. PAST MEDICAL AND SURGICAL HISTORY: Prior CVA with aneurysm reported, hydrocephalus with [employer]PER[employer] shunt, systemic lupus erythematosus, which was not confirmed and she did receive Cytoxan treatment. MRI contrast associated systemic nephrogenic fibrosis, bipolar disorder, obesity, pancreatitis atrial fibrillation, multiple vascular accesses for photopheresis, spinal cord stimulator, hysterectomy. FAMILY HISTORY: Noncontributory. ALLERGIES: QUINOLONES, NAPROXEN, CEPHALOSPORINS, PENICILLINS, LINEZOLID. She states she is able to take Levaquin when she takes it with Benadryl. Also allergic to TETRACYCLINE and SULFA DRUGS. MEDICATIONS: Currently receiving Tylenol, Floranex, Ventolin, DuoNeb, vitamin C , azithromycin, Tessalon, Pulmicort, Bumex, Temovate, Flexeril, Folvite, heparin , Dilaudid, Atarax, Keppra, Claritin, Amitiza, Solu-Medrol, ondansetron, ropinirole, tizanidine, and vancomycin. SOCIAL HISTORY: Former smoker up to 1989. PHYSICAL EXAMINATION: VITAL SIGNS: T-max 98.7, blood pressure 117/71, pulse 102, respirations 16-22, O2 sat 95%. SKIN: Shows chronic skin changes with thinning of the dermis, some scars from prior soft tissue ulcers. She has a peripheral IV access in the left upper extremity and does not have [place] catheter. The area with the catheter was removed in the right groin without induration or drainage. No lymphadenopathy. HEENT: Ocular movements are conjugate. Sclerae white. Pupils are 2 mm and reactive. Oral cavity with still quite a few teeth in place in fairly decent shape, some periodontal disease. NECK: Supple. LUNGS: A few areas of expiratory wheezing noted particularly on the right side. HEART: S1, S2. Irregular rate. ABDOMEN: Soft. Not distended. No ascites or organomegaly. No bladder distention. EXTREMITIES: She is able to move extremities, but has diffuse weakness. Pulses are 1+ in dorsalis pedis. Spinal cord stimulator site does not appear to have inflammatory changes. The patient has a pacemaker in the left submammary region, which is not inflamed either. NEUROLOGIC: Cognitive function appears to be intact. LABORATORY DATA: White cell count is 5.7, hemoglobin 12, platelets 165, which is improved from my admission, neutrophil percentage has improved as well. The creatinine is at 1.19 with a GFR 47. Liver profile normal. Albumin 3.2, globulin 3.8 and the blood cultures has noted previously. I do not find influenza test. There is an echocardiogram from admission, which showed a normal ejection fraction and no valvular abnormalities. ASSESSMENT: 1. Nephrogenic systemic fibrosis reportedly associated with MRI contrast, having finished treatment for this last year. 2. Central line associated bacteremia secondary to strep sanguinis. No obvious sites of systemic spread at this point in time. 3. Multiple devices, which places her at risk for colonization of those devices in the near future. DISCUSSION: Patient has multiple allergic reactions reported to numerous antimicrobials, but seems to be tolerating vancomycin well. We will need placement of a PICC line and treatment for 2 weeks with IV vancomycin. Discontinue azithromycin. Monitor for seeding to the device as noted above as well as other bone, joint and lungs sites, endocarditis appears to be less likely. Seeding to the spine is not evident at this point in time either. MTDD
--- NOTE | 2017-12-10 19:43 | EKG ---
Test Reason : Blood Pressure : / mmHG Vent. Rate : 090 BPM Atrial Rate : 091 BPM P-R Int : 000 ms QRS Dur : 162 ms QT Int : 580 ms P-R-T Axes : 029 -40 266 degrees QTc Int : 709 ms Atrial fibrillation Left axis deviation Non-specific intra-ventricular conduction block Abnormal ECG Confirmed by DARCY IBANEZ, CAMRON Harrison ([id number]), editor department SHEELA NAVARRO ([id number]) on 12/10/2017 7:43:43 PM Referred By: DARCY Confirmed By:CAMRON TAVERAS MD
[2017-12-10] MEDS: Lidocaine Patch Removal 1 EACH TOP SCH (21:09)
[2017-12-10] MEDS: rOPINIRole HCl 1 MG TAB PO SCH (21:09)
[2017-12-10] MEDS: Zolpidem Tartrate 5 MG TAB PO PRN (23:08)
[2017-12-11] MEDS: hydrOXYzine 25 MG TAB PO PRN ×2 (01:36→21:14)
[2017-12-11] MEDS: HYDROmorphone 2 MG TAB PO PRN ×3 (03:46→15:15)
[2017-12-11] MEDS: Ondansetron ODT 4 MG TAB PO SCH ×3 (05:52→21:07)
[2017-12-11] MEDS: Budesonide 0.25 MG/2 ML NEB NEB SCH (06:07)
[2017-12-11] MEDS: Lubiprostone 24 MCG CAP PO SCH ×2 (08:57→17:54)
[2017-12-11] MEDS: Stress 600 With Zinc 1 TAB PO SCH (08:59)
[2017-12-11] MEDS: Lactinex Tablet PO SCH (08:59)
[2017-12-11] MEDS: Ubidecarenone 50 MG CAP PO SCH (08:59)
[2017-12-11] MEDS: Ascorbic Acid 500 mg Chewable Tablet PO SCH (09:00)
[2017-12-11] MEDS: Cyclobenzaprine 10 MG TAB PO SCH (09:00)
[2017-12-11] MEDS: Vitamin A 10,000 UNITS CAP PO SCH (09:00)
[2017-12-11] MEDS: tiZANidine HCl 4 MG TAB PO SCH (09:00)
[2017-12-11] MEDS: Multivit, Therapeutic 1 TAB PO SCH (09:00)
[2017-12-11] MEDS: Bumetanide 1 MG TAB PO SCH (09:01)
[2017-12-11] MEDS: Folic Acid 1 MG TAB PO SCH (09:02)
[2017-12-11] MEDS: Heparin 1,000 UNITS/ML VIAL SLOW IVP SCH (09:02)
[2017-12-11] MEDS: levETIRAcetam 500 MG TAB PO SCH ×2 (09:03→20:09)
[2017-12-11] MEDS: F EA EYE SCH (09:07)
[2017-12-11] MEDS: cycloSPORINE 0.05% Ophthalmic Droperette EA EYE SCH (09:07)
[2017-12-11] MEDS: Vancomycin HCl 1 GM in Premix Bag 1 BAG IVPB SCH (09:14)
[2017-12-11] MEDS: Lidocaine 5% Patch TD SCH (09:14)
--- NOTE | 2017-12-11 12:02 | PDOC.PN ---
- Subjective Encounter Start Date: 12/11/17 Encounter Start Time: 10:30 Subjective: feels better, no fever or sob -: has not amb so far but she can mobilize with RW - Objective Resuscitation Status: Resuscitation Status FULL:Full Resuscitation MAR Reviewed: Yes Vital Signs & Weight: Vital Signs (12 hours) Temp Pulse Resp BP BP Pulse Ox 12/11/17 09:07 104 H 129/84 12/11/17 08:00 98.5 F 104 H 16 93 L 12/11/17 07:48 98.5 F 104 H 16 129/84 93 L 12/11/17 06:07 111 H 20 95 12/11/17 00:33 99 18 95 Weight Admit Weight 228 lb 8 oz Weight 228 lb 8 oz I&O: 12/10/17 12/11/17 12/12/17 06:59 06:59 06:59 Intake Total 985 Balance 985 Result Diagrams: 12/10/17 05:16 12/10/17 05:16 Phys Exam - Physical Examination HEENT: PERRLA, moist MMs Neck: no JVD, supple Respiratory: no wheezing, no rales Cardiovascular: RRR, no significant murmur Gastrointestinal: soft, non-tender, positive bowel sounds Musculoskeletal: pulses present, edema present Neurological: non-focal, moves all 4 limbs Psychiatric: A&O x 3 Dx/Plan (1) Bacteremia Code(s): R78.81 - BACTEREMIA Status: Acute Comment: strep sanguinus (2) Acute asthmatic bronchitis Code(s): J45.909 - UNSPECIFIED ASTHMA, UNCOMPLICATED Status: Acute (3) Influenza Code(s): J11.1 - FLU DUE TO UNIDENTIFIED INFLUENZA VIRUS W OTH RESP MANIFEST Status: Acute Comment: influenza A (4) Pneumonia Code(s): J18.9 - PNEUMONIA, UNSPECIFIED ORGANISM Status: Acute Qualifiers: Pneumonia type: due to unspecified organism (5) Afib Code(s): I48.91 - UNSPECIFIED ATRIAL FIBRILLATION Status: Chronic Qualifiers: Atrial fibrillation type: paroxysmal Qualified Code(s): I48.0 - Paroxysmal atrial fibrillation (6) Hypothyroidism Code(s): E03.9 - HYPOTHYROIDISM, UNSPECIFIED Status: Chronic Qualifiers: Hypothyroidism type: unspecified Qualified Code(s): E03.9 - Hypothyroidism , unspecified (7) Nephrogenic systemic fibrosis Code(s): L90.8 - OTHER ATROPHIC DISORDERS OF SKIN Status: Chronic Comment: sec to MRI contrast (8) Seizure disorder Code(s): G40.909 - EPILEPSY, UNSP, NOT INTRACTABLE, WITHOUT STATUS EPILEPTICUS Status: Chronic - Plan is on vancomycin, to be continued for 2 weeks -: on solumedrol, keppra, nebs -: PT to mobilize pt as tolerated, she walks short dist with rw -: dc planning/out pt antibiotic arrangement * . Review of Systems - Medications/Allergies Allergies/Adverse Reactions: Allergies Allergy/AdvReac Type Severity Reaction Status Date / Time acetaminophen Allergy Verified 09/23/15 00:36 ampicillin Allergy Verified 09/23/15 00:36 aspirin Allergy Verified 09/23/15 00:36 cefepime Allergy Verified 09/23/15 00:36 cefuroxime axetil Allergy Verified 09/23/15 00:36 [From Ceftin] ciprofloxacin [From Cipro] Allergy Verified 09/23/15 00:36 ciprofloxacin HCl Allergy Verified 09/23/15 00:36 [From Cipro] ketorolac tromethamine Allergy Verified 09/23/15 00:36 [From Toradol] lamotrigine [From Lamictal] Allergy Verified 09/23/15 00:36 levofloxacin [From Levaquin] Allergy Verified 09/23/15 00:36 naproxen Allergy Verified 09/23/15 00:36 NSAIDS (Non-Steroidal Allergy Verified 09/23/15 00:36 Anti-Inflamma Penicillins Allergy Verified 09/23/15 00:36 Sulfa (Sulfonamide Allergy Verified 09/23/15 00:36 Antibiotics) Tetracyclines Allergy Verified 09/23/15 00:36 tramadol HCl [From Ultram] Allergy Verified 10/03/15 00:07 Medications: Current Medications Acetaminophen (Tylenol) 650 mg PO Q4H PRN PRN Reason: Headache/Fever or Pain Acidophilus (Floranex) 1 tab PO DAILY [facility] Last Admin: 12/11/17 08:59 Dose: Not Given Albuterol Sulfate (Ventolin) 2.5 mg NEB Q4H PRN PRN Reason: Wheezing Albuterol/Ipratropium (Duoneb) 3 ml NEB [id number] [facility] Last Admin: 12/11/17 06:23 Dose: 3 ml Ascorbic Acid (Vitamin C) 1,000 mg PO DAILY [facility] Last Admin: 12/11/17 09:00 Dose: 1,000 mg Benzonatate (Tessalon) 200 mg PO TIDPRN PRN PRN Reason: Cough Budesonide (Pulmicort Neb Solution) 0.25 mg NEB DAILY-RT [facility] Last Admin: 12/11/17 06:07 Dose: 0.25 mg Bumetanide (Bumex) 2 mg PO DAILY [facility] Last Admin: 12/11/17 09:01 Dose: 2 mg Clobetasol Propionate (Temovate 0.05% Cream) 1 gm TOP DAILY [facility] Last Admin: 12/11/17 09:01 Dose: 1 applic Coenzyme Q10 (Coenzyme Q10) 100 mg PO DAILY [facility] Last Admin: 12/11/17 08:59 Dose: 100 mg Cyclobenzaprine HCl (Flexeril) 10 mg PO DAILY [facility] Last Admin: 12/11/17 09:00 Dose: 10 mg Cyclosporine (Restasis) 0 ml EA EYE DAILY [facility] Last Admin: 12/11/17 09:07 Dose: 1 ml Divalproex Sodium (Depakote Er) 500 mg PO BID [facility] Last Admin: 12/11/17 09:00 Dose: 500 mg Epinephrine (Epinephrine Hcl) 0.3 mg IVP ONE PRN PRN Reason: Allergies Stop: 01/04/18 18:18 Folic Acid (Folvite) 1 mg PO DAILY [facility] Last Admin: 12/11/17 09:02 Dose: 1 mg Guaifenesin/Dextromethorphan (Robitussin Dm) 10 ml PO Q6H PRN PRN Reason: Cough Heparin Sodium (Porcine) (Heparin) 1,000 units SLOW IVP DAILY [facility] Last Admin: 12/11/17 09:02 Dose: Not Given Hydromorphone HCl (Dilaudid) 4 mg PO Q6H PRN PRN Reason: Moderate to Severe Pain (6-10) Last Admin: 12/11/17 09:14 Dose: 4 mg Hydroxyzine HCl (Atarax) 25 mg PO HSPRN PRN PRN Reason: Itching Last Admin: 12/11/17 01:36 Dose: 25 mg Vancomycin HCl 1 gm/ Device 200 mls @ 200 mls/hr IVPB 1000 [facility] Last Admin: 12/11/17 09:14 Dose: 200 mls Levetiracetam (Keppra) 500 mg PO BID [facility] Last Admin: 12/11/17 09:03 Dose: Not Given Lidocaine (Lidoderm 5% Patch) 1 patch TD DAILY [facility] Last Admin: 12/11/17 09:14 Dose: 1 patch Loratadine/Pseudoephedrine Sulfate (Claritin-D 24 Hour) 1 tab PO DAILY PRN PRN Reason: Allergies Lorazepam (Ativan) 0.5 mg PO Q4H PRN PRN Reason: Anxiety Last Admin: 12/08/17 00:18 Dose: 0.5 mg Lubiprostone (Amitiza) 24 mcg PO BID-WM [facility] Last Admin: 12/11/17 08:57 Dose: 24 mcg Methylprednisolone Sodium Succinate (Solu-Medrol) 20 mg IVP Q6HR [facility] Last Admin: 12/11/17 05:53 Dose: Not Given Miscellaneous Medication (Lidocaine Patch Removal) 1 each TOP 2100 [facility] Last Admin: 12/10/17 21:09 Dose: 1 each Miscellaneous Medication (Pharmacy To Dose) 0 each IVPB ASDIR PRN PRN Reason: PHARMACY TO DOSE VANCOMYCIN Multivitamins (Theragran) 1 tab PO DAILY [facility] Last Admin: 12/11/17 09:00 Dose: 1 tab Multivitamins/Zinc (Stress 600 With Zinc) 1 tab PO QAM [facility] Last Admin: 12/11/17 08:59 Dose: 1 tab Nystatin (Mycostatin Cream) 0 gm TOP BIDPRN PRN PRN Reason: Topical Irritations Nystatin (Mycostatin Powder) 0 gm TOP TIDPRN PRN PRN Reason: Topical Irritations Ondansetron HCl (Zofran Odt) 4 mg PO Q6H PRN PRN Reason: Nausea/Vomiting Last Admin: 12/08/17 18:06 Dose: 4 mg Ondansetron HCl (Zofran Odt) 4 mg PO Q8HR [facility] Last Admin: 12/11/17 05:52 Dose: Not Given Ropinirole HCl (Requip) 1 mg PO HS [facility] Last Admin: 12/10/17 21:09 Dose: 1 mg Thyroid ([place] Thyroid) 90 mg PO HS [facility] Last Admin: 12/10/17 21:09 Dose: 90 mg Timolol Maleate (Timoptic 0.5% Ophth Soln) 1 drop EA EYE DAILY [facility] Last Admin: 12/11/17 09:07 Dose: 1 drop Tizanidine HCl (Zanaflex) 4 mg PO DAILY [facility] Last Admin: 12/11/17 09:00 Dose: 4 mg Vitamin A (Vitamin A) 20,000 units PO DAILY [facility] Last Admin: 12/11/17 09:00 Dose: 20,000 units Zolpidem Tartrate (Ambien) 5 mg PO HSPRN PRN PRN Reason: Insomnia Last Admin: 12/10/17 23:08 Dose: 5 mg
[2017-12-11] MEDS: rOPINIRole HCl 1 MG TAB PO SCH (21:07)
[2017-12-11] MEDS: Lidocaine Patch Removal 1 EACH TOP SCH (21:08)
[2017-12-11] MEDS: Zolpidem Tartrate 5 MG TAB PO PRN (21:14)
[2017-12-12] MEDS: Ondansetron ODT 4 MG TAB PO SCH ×3 (05:10→20:59)
--- NOTE | 2017-12-12 07:06 | PRG ---
DATE OF SERVICE: 12/12/2017 The patient is sleeping, looks comfortable. PHYSICAL EXAMINATION: VITAL SIGNS: Temperature 97.9, pulse 90, respirations 20, O2 sat 96%, blood pressure 118/69. HEENT: Unremarkable. NECK: No JVD. CHEST: Clear. CARDIAC: S1 and S2 regular. ABDOMEN: Soft. EXTREMITIES: She has the nephrogenic systemic fibrotic areas. ASSESSMENT: Catheter related sepsis currently being treated with vancomycin. PLAN: Continue antibiotics for duration as determined by ID. No further pulmonary recommendations. We will sign off. Please recall if further assistance needed.
[2017-12-12] MEDS: Budesonide 0.25 MG/2 ML NEB NEB SCH (07:21)
[2017-12-12] MEDS: Bumetanide 1 MG TAB PO SCH (08:57)
[2017-12-12] MEDS: Lidocaine 5% Patch TD SCH ×2 (08:58→10:32)
[2017-12-12] MEDS: Cyclobenzaprine 10 MG TAB PO SCH (08:58)
[2017-12-12] MEDS: HYDROmorphone 2 MG TAB PO PRN ×3 (09:01→23:14)
[2017-12-12] MEDS: tiZANidine HCl 4 MG TAB PO SCH (09:03)
[2017-12-12 09:32] LABS: #Basophils 0.1 thou/uL (0.0-0.2); #Eosinphils 0.1 thou/uL (0.0-0.7); #Lymphocytes 1.8 thou/uL (1.20-3.40); #Monocytes 1.1 thou/uL (0.11-0.59); #Neutrophils 6.3 thou/uL (1.40-6.50); %Basophils 0.7 % (0.0-1.0); %Eosinophils 0.7 % (0.0-10.0); %Monocytes 11.5 % (0.0-10.0); %Neutrophils 68.1 % (42.0-75.0); Hemoglobin 12.8 g/dL (12.0-16.0); Mean Corpuscular HGB CONC 31.5 g/dL (32.0-36.0); Mean Corpuscular Hemoglobin 30.3 pg (27.0-31.0); Mean Corpuscular Volume 96.1 fl (81.0-99.0); Mean Platelet Volume 7.1 fL (7.4-10.4); Platelet Count 167 thou/uL (130-400); RBC Distribution Width 13.4 % (11.5-14.5); Red Blood Cell (RBC) Count 4.23 mill/uL (4.20-5.40); White Blood Cell (WBC) Count 9.2 thou/uL (4.8-10.8)
[2017-12-12 09:51] LABS: BUN (Urea Nitrogen) 45 mg/dL (9.8-20.1); Calc. Creatinine Clearance 71 mL/min (70-130); Calcium 9.5 mg/dL (7.8-10.44); Estimated GFR-MDRD 38; Glucose 99 mg/dL (70-105); Vancomycin, Trough 24.4 ug/mL
[2017-12-12 10:00] LABS: Anion Gap 15 mmol/L (10-20); Carbon Dioxide 32 mmol/L (22-29); Chloride 95 mmol/L (98-107); Potassium 3.8 mmol/L (3.5-5.1); Sodium 138 mmol/L (136-145)
[2017-12-12] MEDS: Ascorbic Acid 500 mg Chewable Tablet PO SCH (10:31)
[2017-12-12] MEDS: Lubiprostone 24 MCG CAP PO SCH ×2 (10:31→17:03)
[2017-12-12] MEDS: levETIRAcetam 500 MG TAB PO SCH ×2 (10:32→20:55)
[2017-12-12] MEDS: Folic Acid 1 MG TAB PO SCH (10:32)
[2017-12-12] MEDS: cycloSPORINE 0.05% Ophthalmic Droperette EA EYE SCH (10:32)
[2017-12-12] MEDS: Lactinex Tablet PO SCH (10:32)
[2017-12-12] MEDS: Multivit, Therapeutic 1 TAB PO SCH (10:32)
[2017-12-12] MEDS: Heparin 1,000 UNITS/ML VIAL SLOW IVP SCH (10:32)
[2017-12-12] MEDS: Vitamin A 10,000 UNITS CAP PO SCH (10:33)
[2017-12-12] MEDS: Stress 600 With Zinc 1 TAB PO SCH (10:33)
[2017-12-12] MEDS: Ubidecarenone 50 MG CAP PO SCH (10:33)
[2017-12-12] MEDS: F EA EYE SCH (10:33)
[2017-12-12] MEDS ORDERED: Vancomycin HCl 750 MG in Sodium Chloride 0.9% 250 ML 250 ML IVPB SCH (11:00)
[2017-12-12] MEDS: Vancomycin HCl 1 GM in Premix Bag 1 BAG IVPB SCH (11:27)
--- NOTE | 2017-12-12 11:46 | PRG ---
DATE OF SERVICE: 12/12/2017 SUBJECTIVE: Ms. Shoemaker is feeling better, is more alert, does not appear as depressed as yesterday. No cough, no chest pain. Mild dyspnea. No abdominal pain. PHYSICAL EXAMINATION: VITAL SIGNS: T-max 98.8. Other vital signs are stable. LUNGS: Clear. HEART: S1, S2, the previously noted wheezing has improved. ABDOMEN: Soft. LABORATORY: White blood cell count 9.2, hemoglobin 12, platelets 167. The creatinine was 1.41, GFR at 38. Repeat blood cultures thus far are negative at 48 hours. ASSESSMENT AND DISCUSSION: Nephrogenic systemic fibrosis, central line associated bacteremia seconda ry to Streptococcus sanguinis with line having been removed and multiple devices. The patient to continue with vancomycin for 2 weeks. End date of therapy is calculated 12/26/2017, w lasha labs including CBC, CRP, CMP and monitor for potential seating of those areas noted in the prev ious report.
--- NOTE | 2017-12-12 12:31 | PDOC.PN ---
- Subjective Encounter Start Date: 12/12/17 Encounter Start Time: 08:35 Subjective: feels better, no new complaints - Objective Resuscitation Status: Resuscitation Status FULL:Full Resuscitation MAR Reviewed: Yes Vital Signs & Weight: Vital Signs (12 hours) Temp Pulse Resp BP Pulse Ox 12/12/17 10:33 99 12/12/17 08:00 97.2 F L 99 18 94 L 12/12/17 07:59 97.2 F L 99 18 130/78 97 12/12/17 07:21 93 20 97 12/12/17 07:19 93 20 97 12/12/17 04:00 97.9 F 91 20 118/69 96 12/12/17 00:42 103 H 18 96 Weight Admit Weight 228 lb 8 oz Weight 228 lb 8 oz I&O: 12/11/17 12/12/17 12/13/17 06:59 06:59 06:59 Intake Total 985 730 Balance 985 730 Result Diagrams: 12/12/17 09:05 12/12/17 09:05 Phys Exam - Physical Examination HEENT: PERRLA, moist MMs Neck: no JVD, supple Respiratory: no wheezing, no rales Cardiovascular: RRR, no significant murmur Gastrointestinal: soft, non-tender, positive bowel sounds Musculoskeletal: pulses present, edema present Neurological: non-focal, moves all 4 limbs Psychiatric: A&O x 3 Dx/Plan (1) Bacteremia Code(s): R78.81 - BACTEREMIA Status: Acute Comment: strep sanguinus (2) Acute asthmatic bronchitis Code(s): J45.909 - UNSPECIFIED ASTHMA, UNCOMPLICATED Status: Acute (3) Influenza Code(s): J11.1 - FLU DUE TO UNIDENTIFIED INFLUENZA VIRUS W OTH RESP MANIFEST Status: Acute Comment: influenza A (4) Pneumonia Code(s): J18.9 - PNEUMONIA, UNSPECIFIED ORGANISM Status: Acute Qualifiers: Pneumonia type: due to unspecified organism (5) Afib Code(s): I48.91 - UNSPECIFIED ATRIAL FIBRILLATION Status: Chronic Qualifiers: Atrial fibrillation type: paroxysmal Qualified Code(s): I48.0 - Paroxysmal atrial fibrillation (6) Hypothyroidism Code(s): E03.9 - HYPOTHYROIDISM, UNSPECIFIED Status: Chronic Qualifiers: Hypothyroidism type: unspecified Qualified Code(s): E03.9 - Hypothyroidism , unspecified (7) Nephrogenic systemic fibrosis Code(s): 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 Review of Systems - Medications/Allergies Allergies/Adverse Reactions: Allergies Allergy/AdvReac Type Severity Reaction Status Date / Time acetaminophen Allergy Verified 09/23/15 00:36 ampicillin Allergy Verified 09/23/15 00:36 aspirin Allergy Verified 09/23/15 00:36 cefepime Allergy Verified 09/23/15 00:36 cefuroxime axetil Allergy Verified 09/23/15 00:36 [From Ceftin] ciprofloxacin [From Cipro] Allergy Verified 09/23/15 00:36 ciprofloxacin HCl Allergy Verified 09/23/15 00:36 [From Cipro] ketorolac tromethamine Allergy Verified 09/23/15 00:36 [From Toradol] lamotrigine [From Lamictal] Allergy Verified 09/23/15 00:36 levofloxacin [From Levaquin] Allergy Verified 09/23/15 00:36 naproxen Allergy Verified 09/23/15 00:36 NSAIDS (Non-Steroidal Allergy Verified 09/23/15 00:36 Anti-Inflamma Penicillins Allergy Verified 09/23/15 00:36 Sulfa (Sulfonamide Allergy Verified 09/23/15 00:36 Antibiotics) Tetracyclines Allergy Verified 09/23/15 00:36 tramadol HCl [From Ultram] Allergy Verified 10/03/15 00:07 Medications: Current Medications Acetaminophen (Tylenol) 650 mg PO Q4H PRN PRN Reason: Headache/Fever or Pain Acidophilus (Floranex) 1 tab PO DAILY [facility] Last Admin: 12/12/17 10:32 Dose: Not Given Albuterol Sulfate (Ventolin) 2.5 mg NEB Q4H PRN PRN Reason: Wheezing Albuterol/Ipratropium (Duoneb) 3 ml NEB [id number] [facility] Last Admin: 12/12/17 07:19 Dose: 3 ml Ascorbic Acid (Vitamin C) 1,000 mg PO DAILY [facility] Last Admin: 12/12/17 10:31 Dose: Not Given Benzonatate (Tessalon) 200 mg PO TIDPRN PRN PRN Reason: Cough Budesonide (Pulmicort Neb Solution) 0.25 mg NEB DAILY-RT [facility] Last Admin: 12/12/17 07:21 Dose: 0.25 mg Bumetanide (Bumex) 2 mg PO DAILY [facility] Last Admin: 12/12/17 08:57 Dose: 2 mg Clobetasol Propionate (Temovate 0.05% Cream) 1 gm TOP DAILY [facility] Last Admin: 12/12/17 10:31 Dose: Not Given Coenzyme Q10 (Coenzyme Q10) 100 mg PO DAILY [facility] Last Admin: 12/12/17 10:33 Dose: Not Given Cyclobenzaprine HCl (Flexeril) 10 mg PO DAILY [facility] Last Admin: 12/12/17 08:58 Dose: 10 mg Cyclosporine (Restasis) 0 ml EA EYE DAILY [facility] Last Admin: 12/12/17 10:32 Dose: Not Given Divalproex Sodium (Depakote Er) 500 mg PO BID [facility] Last Admin: 12/12/17 10:24 Dose: 500 mg Epinephrine (Epinephrine Hcl) 0.3 mg IVP ONE PRN PRN Reason: Allergies Stop: 01/04/18 18:18 Folic Acid (Folvite) 1 mg PO DAILY [facility] Last Admin: 12/12/17 10:32 Dose: Not Given Guaifenesin/Dextromethorphan (Robitussin Dm) 10 ml PO Q6H PRN PRN Reason: Cough Heparin Sodium (Porcine) (Heparin) 1,000 units SLOW IVP DAILY [facility] Last Admin: 12/12/17 10:32 Dose: Not Given Hydromorphone HCl (Dilaudid) 4 mg PO Q6H PRN PRN Reason: Moderate to Severe Pain (6-10) Last Admin: 12/12/17 09:01 Dose: 4 mg Hydroxyzine HCl (Atarax) 25 mg PO HSPRN PRN PRN Reason: Itching Last Admin: 12/11/17 21:14 Dose: 25 mg Vancomycin HCl 750 mg/ Sodium (Chloride) 250 mls @ 250 mls/hr IVPB 1100 [facility] Last Admin: 12/12/17 11:46 Dose: 250 mls Levetiracetam (Keppra) 500 mg PO BID [facility] Last Admin: 12/12/17 10:32 Dose: Not Given Lidocaine (Lidoderm 5% Patch) 1 patch TD DAILY [facility] Last Admin: 12/12/17 10:32 Dose: Not Given Loratadine/Pseudoephedrine Sulfate (Claritin-D 24 Hour) 1 tab PO DAILY PRN PRN Reason: Allergies Lorazepam (Ativan) 0.5 mg PO Q4H PRN PRN Reason: Anxiety Last Admin: 12/08/17 00:18 Dose: 0.5 mg Lubiprostone (Amitiza) 24 mcg PO BID[facility] Last Admin: 12/12/17 10:31 Dose: Not Given Methylprednisolone Sodium Succinate (Solu-Medrol) 20 mg IVP Q6HR [facility] Last Admin: 12/12/17 11:52 Dose: 20 mg Miscellaneous Medication (Lidocaine Patch Removal) 1 each TOP 2100 [facility] Last Admin: 12/11/17 21:08 Dose: 1 each Miscellaneous Medication (Pharmacy To Dose) 0 each IVPB ASDIR PRN PRN Reason: PHARMACY TO DOSE VANCOMYCIN Multivitamins (Theragran) 1 tab PO DAILY [facility] Last Admin: 12/12/17 10:32 Dose: Not Given Multivitamins/Zinc (Stress 600 With Zinc) 1 tab PO QAM [facility] Last Admin: 12/12/17 10:33 Dose: Not Given Nystatin (Mycostatin Cream) 0 gm TOP BIDPRN PRN PRN Reason: Topical Irritations Nystatin (Mycostatin Powder) 0 gm TOP TIDPRN PRN PRN Reason: Topical Irritations Ondansetron HCl (Zofran Odt) 4 mg PO Q6H PRN PRN Reason: Nausea/Vomiting Last Admin: 12/08/17 18:06 Dose: 4 mg Ondansetron HCl (Zofran Odt) 4 mg PO Q8HR [facility] Last Admin: 12/12/17 05:10 Dose: Not Given Ropinirole HCl (Requip) 1 mg PO HS [facility] Last Admin: 12/11/17 21:07 Dose: 1 mg Thyroid ([place] Thyroid) 90 mg PO HS [facility] Last Admin: 12/11/17 21:07 Dose: 90 mg Timolol Maleate (Timoptic 0.5% Ophth Soln) 1 drop EA EYE DAILY [facility] Last Admin: 12/12/17 10:33 Dose: Not Given Tizanidine HCl (Zanaflex) 4 mg PO DAILY [facility] Last Admin: 12/12/17 09:03 Dose: 4 mg Vitamin A (Vitamin A) 20,000 units PO DAILY [facility] Last Admin: 12/12/17 10:33 Dose: Not Given Zolpidem Tartrate (Ambien) 5 mg PO HSPRN PRN PRN Reason: Insomnia Last Admin: 12/11/17 21:14 Dose: 5 mg
--- NOTE | 2017-12-12 16:15 | SPC ---
FLUOROSCOPIC GUIDED PICC LINE PLACEMENT. COMPARISON: None. TECHNIQUE: The patient was brought to the fluoroscopy suite. All questions were answered. The patient's left arm was prepped and draped in normal sterile fashion. Approximately 2 mL of Lidocaine was instilled into the superficial and deep soft tissues. The brachi al vein was accessed. The level of the subclavian vein was occluded. 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 A PICC line was not placed. IMPRESSION: Given the subclavian vein occlusion, PICC line was unable to be placed. Fluoro time: 1.9 minutes. Dose 4526 mGy*^cm2. POS: [facility]
[2017-12-12] MEDS: rOPINIRole HCl 1 MG TAB PO SCH (20:58)
[2017-12-12] MEDS: Lidocaine Patch Removal 1 EACH TOP SCH (20:59)
[2017-12-12] MEDS: hydrOXYzine 25 MG TAB PO PRN (21:02)
[2017-12-12] MEDS: Zolpidem Tartrate 5 MG TAB PO PRN (23:14)
[2017-12-13] MEDS: HYDROmorphone 2 MG TAB PO PRN ×2 (05:16→17:48)
[2017-12-13] MEDS: Ondansetron ODT 4 MG TAB PO SCH ×3 (05:17→20:21)
[2017-12-13] MEDS: Budesonide 0.25 MG/2 ML NEB NEB SCH (07:22)
[2017-12-13 07:46] LABS: #Eosinphils 0.1 thou/uL (0.0-0.7); #Lymphocytes 2.4 thou/uL (1.20-3.40); #Monocytes 1.4 thou/uL (0.11-0.59); #Neutrophils 7.5 thou/uL (1.40-6.50); %Basophils 0.2 % (0.0-1.0); %Eosinophils 0.4 % (0.0-10.0); %Lymphocytes 21.1 % (21.0-51.0); %Neutrophils 66.1 % (42.0-75.0); Hemoglobin 12.3 g/dL (12.0-16.0); Mean Corpuscular HGB CONC 31.8 g/dL (32.0-36.0); Mean Corpuscular Hemoglobin 30.7 pg (27.0-31.0); Mean Corpuscular Volume 96.6 fl (81.0-99.0); Mean Platelet Volume 7.1 fL (7.4-10.4); Platelet Count 159 thou/uL (130-400); RBC Distribution Width 13.6 % (11.5-14.5); Red Blood Cell (RBC) Count 3.99 mill/uL (4.20-5.40); White Blood Cell (WBC) Count 11.4 thou/uL (4.8-10.8)
[2017-12-13 07:58] LABS: Anion Gap 10 mmol/L (10-20); BUN (Urea Nitrogen) 39 mg/dL (9.8-20.1); Calc. Creatinine Clearance 76 mL/min (70-130); Calcium 9.4 mg/dL (7.8-10.44); Carbon Dioxide 37 mmol/L (22-29); Chloride 95 mmol/L (98-107); Estimated GFR-MDRD 41; Glucose 125 mg/dL (70-105); Potassium 3.6 mmol/L (3.5-5.1); Sodium 138 mmol/L (136-145)
[2017-12-13] MEDS: Lubiprostone 24 MCG CAP PO SCH ×2 (09:07→17:50)
[2017-12-13] MEDS: levETIRAcetam 500 MG TAB PO SCH (09:08)
[2017-12-13] MEDS: Folic Acid 1 MG TAB PO SCH (09:08)
[2017-12-13] MEDS: Vitamin A 10,000 UNITS CAP PO SCH (09:09)
[2017-12-13] MEDS: Ubidecarenone 50 MG CAP PO SCH (09:09)
[2017-12-13] MEDS: Heparin 1,000 UNITS/ML VIAL SLOW IVP SCH (09:15)
[2017-12-13] MEDS: Lactinex Tablet PO SCH (09:15)
[2017-12-13] MEDS: Multivit, Therapeutic 1 TAB PO SCH (09:16)
[2017-12-13] MEDS: Ascorbic Acid 500 mg Chewable Tablet PO SCH (09:17)
[2017-12-13] MEDS: cycloSPORINE 0.05% Ophthalmic Droperette EA EYE SCH (09:18)
[2017-12-13] MEDS: Lidocaine 5% Patch TD SCH (09:19)
[2017-12-13] MEDS: Stress 600 With Zinc 1 TAB PO SCH (09:20)
[2017-12-13] MEDS: F EA EYE SCH (09:30)
[2017-12-13] MEDS ORDERED: Bumetanide 1 MG TAB PO SCH (10:15)
[2017-12-13] MEDS: Vancomycin HCl 750 MG, Admixture Fee 1 EACH in Sodium Chloride 0.9% 250 ML 250 ML IVPB SCH (11:20)
[2017-12-13] MEDS: tiZANidine HCl 4 MG TAB PO SCH (12:46)
[2017-12-13] MEDS: Cyclobenzaprine 10 MG TAB PO SCH (12:46)
--- NOTE | 2017-12-13 13:23 | PDOC.PN ---
- Subjective Encounter Start Date: 12/13/17 Encounter Start Time: 11:15 Subjective: picc couldn't be placed yesterday -: for Osorio cath in am -: feels better, no new complaints - Objective Resuscitation Status: Resuscitation Status FULL:Full Resuscitation MAR Reviewed: Yes Vital Signs & Weight: Vital Signs (12 hours) Temp Pulse Resp BP BP Pulse Ox 12/13/17 11:00 98.3 F 109 H 18 129/72 97 12/13/17 08:00 98.3 F 100 20 97 12/13/17 07:22 100 20 97 12/13/17 07:16 100 20 97 12/13/17 07:10 98.8 F 100 18 127/71 97 Weight Admit Weight 228 lb 8 oz Weight 228 lb 8 oz I&O: 12/12/17 12/13/17 12/14/17 06:59 06:59 06:59 Intake Total 730 970 Balance 730 970 Result Diagrams: 12/13/17 07:27 12/13/17 07:27 Phys Exam - Physical Examination HEENT: PERRLA, moist MMs Neck: no JVD, supple Respiratory: no wheezing, no rales Cardiovascular: RRR, no significant murmur Gastrointestinal: soft, non-tender, positive bowel sounds Musculoskeletal: pulses present, edema present Neurological: non-focal, moves all 4 limbs Psychiatric: A&O x 3 Dx/Plan (1) Bacteremia Code(s): R78.81 - BACTEREMIA Status: Acute Comment: strep sanguinus (2) Acute asthmatic bronchitis Code(s): J45.909 - UNSPECIFIED ASTHMA, UNCOMPLICATED Status: Acute (3) Influenza Code(s): J11.1 - FLU DUE TO UNIDENTIFIED INFLUENZA VIRUS W OTH RESP MANIFEST Status: Acute Comment: influenza A (4) Pneumonia Code(s): J18.9 - PNEUMONIA, UNSPECIFIED ORGANISM Status: Acute Qualifiers: Pneumonia type: due to unspecified organism (5) Afib Code(s): I48.91 - UNSPECIFIED ATRIAL FIBRILLATION Status: Chronic Qualifiers: Atrial fibrillation type: paroxysmal Qualified Code(s): I48.0 - Paroxysmal atrial fibrillation (6) Hypothyroidism Code(s): E03.9 - HYPOTHYROIDISM, UNSPECIFIED Status: Chronic Qualifiers: Hypothyroidism type: unspecified Qualified Code(s): E03.9 - Hypothyroidism , unspecified (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 Review of Systems - Medications/Allergies Allergies/Adverse Reactions: Allergies Allergy/AdvReac Type Severity Reaction Status Date / Time acetaminophen Allergy Verified 09/23/15 00:36 ampicillin Allergy Verified 09/23/15 00:36 aspirin Allergy Verified 09/23/15 00:36 cefepime Allergy Verified 09/23/15 00:36 cefuroxime axetil Allergy Verified 09/23/15 00:36 [From Ceftin] ciprofloxacin [From Cipro] Allergy Verified 09/23/15 00:36 ciprofloxacin HCl Allergy Verified 09/23/15 00:36 [From Cipro] ketorolac tromethamine Allergy Verified 09/23/15 00:36 [From Toradol] lamotrigine [From Lamictal] Allergy Verified 09/23/15 00:36 levofloxacin [From Levaquin] Allergy Verified 09/23/15 00:36 naproxen Allergy Verified 09/23/15 00:36 NSAIDS (Non-Steroidal Allergy Verified 09/23/15 00:36 Anti-Inflamma Penicillins Allergy Verified 09/23/15 00:36 Sulfa (Sulfonamide Allergy Verified 09/23/15 00:36 Antibiotics) Tetracyclines Allergy Verified 09/23/15 00:36 tramadol HCl [From Ultram] Allergy Verified 10/03/15 00:07 Medications: Current Medications Acetaminophen (Tylenol) 650 mg PO Q4H PRN PRN Reason: Headache/Fever or Pain Albuterol Sulfate (Ventolin) 2.5 mg NEB Q4H PRN PRN Reason: Wheezing Albuterol/Ipratropium (Duoneb) 3 ml NEB [id number] [facility] Last Admin: 12/13/17 07:16 Dose: 3 ml Ascorbic Acid (Vitamin C) 1,000 mg PO DAILY [facility] Last Admin: 12/13/17 09:17 Dose: 1,000 mg Benzonatate (Tessalon) 200 mg PO TIDPRN PRN PRN Reason: Cough Budesonide (Pulmicort Neb Solution) 0.25 mg NEB DAILY-RT [facility] Last Admin: 12/13/17 07:22 Dose: 0.25 mg Bumetanide (Bumex) 2 mg PO 0730 [facility] Clobetasol Propionate (Temovate 0.05% Cream) 1 gm TOP DAILY [facility] Last Admin: 12/13/17 09:36 Dose: Not Given Coenzyme Q10 (Coenzyme Q10) 100 mg PO DAILY [facility] Last Admin: 12/13/17 09:09 Dose: 100 mg Cyclobenzaprine HCl (Flexeril) 10 mg PO DAILY [facility] Last Admin: 12/13/17 12:46 Dose: Not Given Cyclosporine (Restasis) 0 ml EA EYE DAILY [facility] Last Admin: 12/13/17 09:18 Dose: Not Given Divalproex Sodium (Depakote Er) 500 mg PO BID [facility] Last Admin: 12/13/17 09:08 Dose: 500 mg Epinephrine (Epinephrine Hcl) 0.3 mg IVP ONE PRN PRN Reason: Allergies Stop: 01/04/18 18:18 Folic Acid (Folvite) 1 mg PO DAILY [facility] Last Admin: 12/13/17 09:08 Dose: 1 mg Guaifenesin/Dextromethorphan (Robitussin Dm) 10 ml PO Q6H PRN PRN Reason: Cough Heparin Sodium (Porcine) (Heparin) 1,000 units SLOW IVP DAILY [facility] Last Admin: 12/13/17 09:15 Dose: Not Given Hydromorphone HCl (Dilaudid) 4 mg PO Q6H PRN PRN Reason: Moderate to Severe Pain (6-10) Last Admin: 12/13/17 05:16 Dose: 4 mg Hydroxyzine HCl (Atarax) 25 mg PO HSPRN PRN PRN Reason: Itching Last Admin: 12/12/17 21:02 Dose: 25 mg Vancomycin HCl 750 mg/Miscellaneous Medication 1 each/ Sodium Chloride 250 mls @ 250 mls/hr IVPB 1100 [facility] Stop: 12/25/17 11:59 Last Admin: 12/13/17 11:20 Dose: 250 mls Lidocaine (Lidoderm 5% Patch) 1 patch TD DAILY [facility] Last Admin: 12/13/17 09:19 Dose: 1 patch Loratadine/Pseudoephedrine Sulfate (Claritin-D 24 Hour) 1 tab PO DAILY PRN PRN Reason: Allergies Lorazepam (Ativan) 0.5 mg PO Q4H PRN PRN Reason: Anxiety Last Admin: 12/08/17 00:18 Dose: 0.5 mg Lubiprostone (Amitiza) 24 mcg PO BID-WM [facility] Last Admin: 12/13/17 09:07 Dose: 24 mcg Miscellaneous Medication (Lidocaine Patch Removal) 1 each TOP 2100 [facility] Last Admin: 12/12/17 20:59 Dose: 1 each Miscellaneous Medication (Pharmacy To Dose) 0 each IVPB ASDIR PRN PRN Reason: PHARMACY TO DOSE VANCOMYCIN Multivitamins (Theragran) 1 tab PO DAILY [facility] Last Admin: 12/13/17 09:16 Dose: 1 tab Multivitamins/Zinc (Stress 600 With Zinc) 1 tab PO QAM [facility] Last Admin: 12/13/17 09:20 Dose: 1 tab Nystatin (Mycostatin Cream) 0 gm TOP BIDPRN PRN PRN Reason: Topical Irritations Nystatin (Mycostatin Powder) 0 gm TOP TIDPRN PRN PRN Reason: Topical Irritations Ondansetron HCl (Zofran Odt) 4 mg PO Q6H PRN PRN Reason: Nausea/Vomiting Last Admin: 12/08/17 18:06 Dose: 4 mg Ondansetron HCl (Zofran Odt) 4 mg PO Q8HR [facility] Last Admin: 12/13/17 13:00 Dose: Not Given Ropinirole HCl (Requip) 1 mg PO [facility] Last Admin: 12/12/17 20:58 Dose: 1 mg Sodium Chloride (Flush - Normal Saline) 10 ml IVF Q12HR [facility] Last Admin: 12/13/17 09:06 Dose: 10 ml Sodium Chloride (Flush - Normal Saline) 10 ml IVF PRN PRN PRN Reason: Saline Flush Thyroid ([place] Thyroid) 90 mg PO [facility] Last Admin: 12/12/17 20:58 Dose: 90 mg Timolol Maleate (Timoptic 0.5% Ophth Soln) 1 drop EA EYE DAILY [facility] Last Admin: 12/13/17 09:30 Dose: Not Given Tizanidine HCl (Zanaflex) 4 mg PO DAILY [facility] Last Admin: 12/13/17 12:46 Dose: Not Given Vitamin A (Vitamin A) 20,000 units PO DAILY [facility] Last Admin: 12/13/17 09:09 Dose: 20,000 units Zolpidem Tartrate (Ambien) 5 mg PO HSPRN PRN PRN Reason: Insomnia Last Admin: 12/12/17 23:14 Dose: 5 mg
--- NOTE | 2017-12-13 16:59 | PRG ---
DATE OF SERVICE: 12/13/2017 SUBJECTIVE: Ms. Shoemaker could not have the PICC line inserted due to occlusion of bilateral subclavia n. Otherwise, no changes in her symptoms. PHYSICAL EXAMINATION: VITAL SIGNS: Stable, a little bit tachycardic. LUNGS: Clear. HEART: S1, S2, regular rate. ABDOMEN: Soft. LABORATORY DATA: White cell count was 11.4, platelets 159. ASSESSMENT AND DISCUSSION: Nephrogenic systemic fibrosis, central line associated bacteremia seconda ry to Streptococcus sanguinis with device removed. I have asked Dr. Dos Santos to place a midline instead of a PICC line since she only needs another week and half of treatment intravenously and after that, she would be able to go home. Cancel the surgical consultation.
[2017-12-13] MEDS: Lidocaine Patch Removal 1 EACH TOP SCH (20:19)
[2017-12-13] MEDS: rOPINIRole HCl 1 MG TAB PO SCH (20:19)
[2017-12-13] MEDS: Lorazepam 0.5 MG TAB PO PRN (20:26)
[2017-12-14] MEDS: HYDROmorphone 2 MG TAB PO PRN ×2 (02:53→09:49)
[2017-12-14] MEDS: Ondansetron ODT 4 MG TAB PO SCH ×2 (05:01→15:04)
[2017-12-14] MEDS: Budesonide 0.25 MG/2 ML NEB NEB SCH (06:33)
--- NOTE | 2017-12-14 07:25 | EKG ---
Test Reason : CK RHYTHM Blood Pressure : / mmHG Vent. Rate : 113 BPM Atrial Rate : 113 BPM P-R Int : 000 ms QRS Dur : 082 ms QT Int : 316 ms P-R-T Axes : 000 -27 019 degrees QTc Int : 433 ms undetermined rhythm possible a flutter with variable conduction Poor anterior R wave progression Nonspecific ST abnormality Abnormal ECG When compared with ECG of 07-DEC-2017 07:11, Junctional rhythm has replaced Atrial fibrillation Nonspecific T wave abnormality now evident in Inferior leads Confirmed by DR. Deon HESS ([id number]) on 12/14/2017 7:25:08 AM Referred By: LINDSEY Confirmed By:DR. Deon HESS
[2017-12-14] MEDS ORDERED: Bumetanide 1 MG TAB PO SCH (07:30)
[2017-12-14 08:33] VITALS: TEMP 98.7
[2017-12-14] MEDS: Lubiprostone 24 MCG CAP PO SCH (09:48)
[2017-12-14] MEDS: Heparin 1,000 UNITS/ML VIAL SLOW IVP SCH (10:45)
[2017-12-14] MEDS: Folic Acid 1 MG TAB PO SCH (10:45)
[2017-12-14] MEDS: Cyclobenzaprine 10 MG TAB PO SCH (10:45)
[2017-12-14] MEDS: Ascorbic Acid 500 mg Chewable Tablet PO SCH (10:45)
[2017-12-14] MEDS: Stress 600 With Zinc 1 TAB PO SCH (10:46)
[2017-12-14] MEDS: cycloSPORINE 0.05% Ophthalmic Droperette EA EYE SCH (10:46)
[2017-12-14] MEDS: Lidocaine 5% Patch TD SCH (10:46)
[2017-12-14] MEDS: tiZANidine HCl 4 MG TAB PO SCH (10:46)
[2017-12-14] MEDS: F EA EYE SCH (10:46)
[2017-12-14] MEDS: Vitamin A 10,000 UNITS CAP PO SCH (10:46)
[2017-12-14] MEDS: Ubidecarenone 50 MG CAP PO SCH (10:46)
[2017-12-14] MEDS: Multivit, Therapeutic 1 TAB PO SCH (10:46)
[2017-12-14 10:59] LABS: Vancomycin, Trough 18.6 ug/mL
--- NOTE | 2017-12-14 11:19 | SPC ---
FLUOROSCOPIC GUIDED PICC LINE PLACEMENT. HISTORY: Means for long-term IV antibiotics. COMPARISON: 12/12/17 exam. FINDINGS: The patient was brought to the specials suite. All questions were answered. The patient's left arm was prepped and draped in normal sterile fashion. Given that the patient only needed 2 more days of antibiotics, in the absence of patent subclavian veins and access to the IVC f rom the arms, a midline catheter was to be placed per Dr. Riggins. Approximately 3 mL of Lidocaine was instilled to the superficial and deep soft tissues over the brach ial vein. The brachial vein was accessed with a micropuncture set. Over a wire and peelaway, a 15 c m PICC was placed. The patient tolerated the procedure well. No complication. IMPRESSION: Technically successful midline catheter placement with tip at the axillary vein. POS: REID
--- NOTE | 2017-12-14 11:57 | PDOC.PN ---
- Subjective Encounter Start Date: 12/14/17 Encounter Start Time: 07:20 Subjective: no new complaints - Objective Resuscitation Status: Resuscitation Status FULL:Full Resuscitation MAR Reviewed: Yes Vital Signs & Weight: Vital Signs (12 hours) Temp Pulse Resp BP Pulse Ox 12/14/17 08:00 98.7 F 89 16 89/60 L 98 12/14/17 06:33 91 18 97 12/14/17 04:00 98.2 F 111 H 22 H 104/63 98 12/14/17 00:11 95 18 98 12/14/17 00:00 98.0 F 90 22 H 95/69 98 Weight Admit Weight 228 lb 8 oz Weight 228 lb 8 oz I&O: 12/13/17 12/14/17 12/15/17 06:59 06:59 06:59 Intake Total 970 1470 Balance 970 1470 Result Diagrams: 12/13/17 07:27 12/13/17 07:27 Phys Exam - Physical Examination HEENT: PERRLA, moist MMs Neck: no JVD, supple Respiratory: no wheezing, no rales Cardiovascular: RRR, no significant murmur Gastrointestinal: soft, non-tender, positive bowel sounds Musculoskeletal: pulses present, edema present Neurological: non-focal, moves all 4 limbs Psychiatric: A&O x 3 Dx/Plan (1) Bacteremia Code(s): R78.81 - BACTEREMIA Status: Acute Comment: strep sanguinus (2) Acute asthmatic bronchitis Code(s): J45.909 - UNSPECIFIED ASTHMA, UNCOMPLICATED Status: Acute (3) Influenza Code(s): J11.1 - FLU DUE TO UNIDENTIFIED INFLUENZA VIRUS W OTH RESP MANIFEST Status: Acute Comment: influenza A (4) Pneumonia Code(s): J18.9 - PNEUMONIA, UNSPECIFIED ORGANISM Status: Acute Qualifiers: Pneumonia type: due to unspecified organism (5) Afib Code(s): I48.91 - UNSPECIFIED ATRIAL FIBRILLATION Status: Chronic Qualifiers: Atrial fibrillation type: paroxysmal Qualified Code(s): I48.0 - Paroxysmal atrial fibrillation (6) Hypothyroidism Code(s): E03.9 - HYPOTHYROIDISM, UNSPECIFIED Status: Chronic Qualifiers: Hypothyroidism type: unspecified Qualified Code(s): E03.9 - Hypothyroidism , unspecified (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 Review of Systems - Medications/Allergies Allergies/Adverse Reactions: Allergies Allergy/AdvReac Type Severity Reaction Status Date / Time acetaminophen Allergy Verified 09/23/15 00:36 ampicillin Allergy Verified 09/23/15 00:36 aspirin Allergy Verified 09/23/15 00:36 cefepime Allergy Verified 09/23/15 00:36 cefuroxime axetil Allergy Verified 09/23/15 00:36 [From Ceftin] ciprofloxacin [From Cipro] Allergy Verified 09/23/15 00:36 ciprofloxacin HCl Allergy Verified 09/23/15 00:36 [From Cipro] ketorolac tromethamine Allergy Verified 09/23/15 00:36 [From Toradol] lamotrigine [From Lamictal] Allergy Verified 09/23/15 00:36 levofloxacin [From Levaquin] Allergy Verified 09/23/15 00:36 naproxen Allergy Verified 09/23/15 00:36 NSAIDS (Non-Steroidal Allergy Verified 09/23/15 00:36 Anti-Inflamma Penicillins Allergy Verified 09/23/15 00:36 Sulfa (Sulfonamide Allergy Verified 09/23/15 00:36 Antibiotics) Tetracyclines Allergy Verified 09/23/15 00:36 tramadol HCl [From Ultram] Allergy Verified 10/03/15 00:07 Medications: Current Medications Acetaminophen (Tylenol) 650 mg PO Q4H PRN PRN Reason: Headache/Fever or Pain Albuterol Sulfate (Ventolin) 2.5 mg NEB Q4H PRN PRN Reason: Wheezing Albuterol/Ipratropium (Duoneb) 3 ml NEB [id number] [facility] Last Admin: 12/14/17 11:53 Dose: 3 ml Ascorbic Acid (Vitamin C) 1,000 mg PO DAILY [facility] Last Admin: 12/14/17 10:45 Dose: Not Given Benzonatate (Tessalon) 200 mg PO TIDPRN PRN PRN Reason: Cough Budesonide (Pulmicort Neb Solution) 0.25 mg NEB DAILY-RT [facility] Last Admin: 12/14/17 06:33 Dose: 0.25 mg Bumetanide (Bumex) 2 mg PO 0730 [facility] Last Admin: 12/14/17 09:49 Dose: 2 mg Clobetasol Propionate (Temovate 0.05% Cream) 1 gm TOP DAILY [facility] Last Admin: 12/14/17 10:45 Dose: Not Given Coenzyme Q10 (Coenzyme Q10) 100 mg PO DAILY [facility] Last Admin: 12/14/17 10:46 Dose: Not Given Cyclobenzaprine HCl (Flexeril) 10 mg PO DAILY [facility] Last Admin: 12/14/17 10:45 Dose: Not Given Cyclosporine (Restasis) 0 ml EA EYE DAILY [facility] Last Admin: 12/14/17 10:46 Dose: Not Given Divalproex Sodium (Depakote Er) 500 mg PO BID [facility] Last Admin: 12/14/17 09:47 Dose: 500 mg Epinephrine (Epinephrine Hcl) 0.3 mg IVP ONE PRN PRN Reason: Allergies Stop: 01/04/18 18:18 Folic Acid (Folvite) 1 mg PO DAILY [facility] Last Admin: 12/14/17 10:45 Dose: Not Given Guaifenesin/Dextromethorphan (Robitussin Dm) 10 ml PO Q6H PRN PRN Reason: Cough Heparin Sodium (Porcine) (Heparin) 1,000 units SLOW IVP DAILY [facility] Last Admin: 12/14/17 10:45 Dose: Not Given Hydromorphone HCl (Dilaudid) 4 mg PO Q6H PRN PRN Reason: Moderate to Severe Pain (6-10) Last Admin: 12/14/17 09:49 Dose: 4 mg Hydroxyzine HCl (Atarax) 25 mg PO HSPRN PRN PRN Reason: Itching Last Admin: 12/12/17 21:02 Dose: 25 mg Vancomycin HCl 750 mg/Miscellaneous Medication 1 each/ Sodium Chloride 250 mls @ 250 mls/hr IVPB 1100 [facility] Stop: 12/25/17 11:59 Last Admin: 12/13/17 11:20 Dose: 250 mls Lidocaine (Lidoderm 5% Patch) 1 patch TD DAILY [facility] Last Admin: 12/14/17 10:46 Dose: Not Given Loratadine/Pseudoephedrine Sulfate (Claritin-D 24 Hour) 1 tab PO DAILY PRN PRN Reason: Allergies Lorazepam (Ativan) 0.5 mg PO Q4H PRN PRN Reason: Anxiety Last Admin: 12/13/17 20:26 Dose: 0.5 mg Lubiprostone (Amitiza) 24 mcg PO BID[facility] Last Admin: 12/14/17 09:48 Dose: 24 mcg Miscellaneous Medication (Lidocaine Patch Removal) 1 each TOP 2100 [facility] Last Admin: 12/13/17 20:19 Dose: 1 each Miscellaneous Medication (Pharmacy To Dose) 0 each IVPB ASDIR PRN PRN Reason: PHARMACY TO DOSE VANCOMYCIN Multivitamins (Theragran) 1 tab PO DAILY [facility] Last Admin: 12/14/17 10:46 Dose: Not Given Multivitamins/Zinc (Stress 600 With Zinc) 1 tab PO QAM [facility] Last Admin: 12/14/17 10:46 Dose: Not Given Nystatin (Mycostatin Cream) 0 gm TOP BIDPRN PRN PRN Reason: Topical Irritations Nystatin (Mycostatin Powder) 0 gm TOP TIDPRN PRN PRN Reason: Topical Irritations Ondansetron HCl (Zofran Odt) 4 mg PO Q6H PRN PRN Reason: Nausea/Vomiting Last Admin: 12/08/17 18:06 Dose: 4 mg Ondansetron HCl (Zofran Odt) 4 mg PO Q8HR [facility] Last Admin: 12/14/17 05:01 Dose: Not Given Ropinirole HCl (Requip) 1 mg PO [facility] Last Admin: 12/13/17 20:19 Dose: 1 mg Sodium Chloride (Flush - Normal Saline) 10 ml IVF Q12HR [facility] Last Admin: 12/14/17 10:46 Dose: Not Given Sodium Chloride (Flush - Normal Saline) 10 ml IVF PRN PRN PRN Reason: Saline Flush Thyroid ([place] Thyroid) 90 mg PO [facility] Last Admin: 12/13/17 20:20 Dose: 90 mg Timolol Maleate (Timoptic 0.5% Ophth Soln) 1 drop EA EYE DAILY [facility] Last Admin: 12/14/17 10:46 Dose: Not Given Tizanidine HCl (Zanaflex) 4 mg PO DAILY [facility] Last Admin: 12/14/17 10:46 Dose: Not Given Vitamin A (Vitamin A) 20,000 units PO DAILY [facility] Last Admin: 12/14/17 10:46 Dose: Not Given Zolpidem Tartrate (Ambien) 5 mg PO HSPRN PRN PRN Reason: Insomnia Last Admin: 12/12/17 23:14 Dose: 5 mg
[2017-12-14] MEDS: Vancomycin HCl 750 MG, Admixture Fee 1 EACH in Sodium Chloride 0.9% 250 ML 250 ML IVPB SCH (12:37)
[2017-12-14] MEDS ORDERED: Sodium Chloride 0.9% 500 ML IV SCH (14:00)
[2017-12-14 15:22] VITALS: BP 105/71
[2017-12-14] MEDS ORDERED: Heparin 1,000 UNITS/ML VIAL ONE ×2 (16:29→16:30)
--- NOTE | 2017-12-14 17:51 | DIS ---
DATE OF ADMISSION: 12/05/2017 DATE OF DISCHARGE: 12/14/2017 DISCHARGE DISPOSITION: To home. PRIMARY DISCHARGE DIAGNOSES: Streptococcus sanguineous bacteremia. Acute asthmatic bronchitis, resolved. Influenza A, resolved. Pneumonia, resolved. SECONDARY DISCHARGE DIAGNOSES: Paroxysmal atrial fibrillation, hypothyroidism, obesity, nephrogenic systemic fibrosis and seizure disorder. PROCEDURES DONE DURING HOSPITALIZATION: Echo with 2D Doppler done showed ejection fraction of 60% to 65%, left ventricular size was normal. Chest x-ray showed mild cardiomegaly, otherwise no glendy infiltrate. She has had removal of cuffed tunnel dual lumen large bore catheter from right femoral vein, done by Dr. Hernandez on 12/09/2017. Blood cultures x2 grew Streptococcus sanguinous. Influenza A antigen was positive in the nasal swab. Repeat blood cultures drawn on the x2 have not grown any organism. INPATIENT CONSULTS: Dr. Hernandez for General Surgery, Dr. Riggins for Infectious Disease and Dr. Rubalcava for Pulmonology. DISCHARGE PLAN: The patient to follow up with primary care physician in [address] Riggins as advised. DISCHARGE MEDICATIONS: Vancomycin 750 mg daily for another 13 days, albuterol, DuoNeb q.6 hourly p.r.n., vitamin C 1000 mg p.o. daily, biotin 300 mcg p.o. daily, Pulmicort nebulizer daily, Bumex 2 mg daily, Flexeril 10 mg daily, Depakote extended release 500 mg twice daily, folic acid 0.8 mg daily, Dilaudid 4 mg p.o. q.6 hourly p.r.n., Keppra 500 mg p.o. twice daily, Amitiza 24 mcg p.o. twice daily, multivitamin 1 capsule daily, Requip 1 mg p.o. at bedtime, [place] Thyroid 90 mg p.o. daily and CoQ10 125 mg p.o. daily. ALLERGIES: Multiple agents including TYLENOL, AMPICILLIN, ASPIRIN, CEFEPIME, CIPROFLOXACIN, TORADOL, LAMICTAL, NAPROSYN, PENICILLIN, SULFA, TETRACYCLINE and ULTRAM. DISCHARGE PLAN: The patient to follow up with Dr. Riggins as advised and primary care physician in 1 week. BRIEF COURSE DURING HOSPITALIZATION: The patient initially got admitted on the with complaints of cough for 11 days and shortness of breath. She had some nausea, vomiting and diarrhea as well. She had a fever of 101.8. The patient was also hypoxic on arrival with saturations coming up to 93% on 3 liters. She was essentially placed to IMCU initially for sepsis and acute respiratory failure with hypoxia. She also had acute asthmatic bronchitis as well. She has had consultation with Dr. Rubalcava for critical care. Her blood cultures came back positive for 2/2 Streptococcus serosanguineous. The patient had a central line in her right femoral vein, which was a tunneled catheter. This was removed by Dr. Hernandez. Subsequently, she has had 2 more cultures done , which have not grown any organism. In view of multiple antibiotic allergies, the patient has had consultation with Dr. Riggins. She was placed on vancomycin and has responded well. A PICC line could not be placed for her for outpatient use and instead has a midline placed this morning. Once outpatient antibiotics are arranged, she will be shortly discharged home. Please see a face-to -face documentation on [facility] for the day of discharge. JOSE
== END 2017-12-14 15:35 | disposition home health service (06) | DRG 314 ==
LOC: ERS 09:37 → ERHOLD 11:18 → T4-B 14:29
PROVIDERS: ADMIT Internal Medicine; ATTEND Internal Medicine
PROC: 0JPW3XZ Removal of Tunneled Vascular Access Device from Lower Extremity Subcutaneous Tissue and Fascia, Percutaneous Approach (ICD-10-PCS; principal; 2017-12-09)
PROC: 06PYX3Z Removal of Infusion Device from Lower Vein, External Approach (ICD-10-PCS; 2017-12-09)
PROC: 05JY3ZZ Inspection of Upper Vein, Percutaneous Approach (ICD-10-PCS; 2017-12-12)
PROC: 05H833Z Insertion of Infusion Device into Left Axillary Vein, Percutaneous Approach (ICD-10-PCS; 2017-12-14)
PROC: B51NZZA Fluoroscopy of Left Upper Extremity Veins, Guidance (ICD-10-PCS; 2017-12-14)
DX: T80.211A Bloodstream infection due to central venous catheter, initial encounter (principal); A40.8 Other streptococcal sepsis; J96.01 Acute respiratory failure with hypoxia; J10.00 Influenza due to other identified influenza virus with unspecified type of pneumonia; I48.0 Paroxysmal atrial fibrillation; G62.9 Polyneuropathy, unspecified; N19 Unspecified kidney failure; I48.2 Chronic atrial fibrillation; J45.901 Unspecified asthma with (acute) exacerbation; I82.B22 Chronic embolism and thrombosis of left subclavian vein; E03.9 Hypothyroidism, unspecified; E66.9 Obesity, unspecified; Z68.35 Body mass index [BMI] 35.0-35.9, adult; G40.909 Epilepsy, unspecified, not intractable, without status epilepticus; L90.8 Other atrophic disorders of skin; Z88.1 Allergy status to other antibiotic agents; T50.8X5S Adverse effect of diagnostic agents, sequela; N14.1 Nephropathy induced by other drugs, medicaments and biological substances; T45.1X5S Adverse effect of antineoplastic and immunosuppressive drugs, sequela; Z86.73 Personal history of transient ischemic attack (TIA), and cerebral infarction without residual deficits; G89.4 Chronic pain syndrome; F31.9 Bipolar disorder, unspecified; Z87.891 Personal history of nicotine dependence; Z98.2 Presence of cerebrospinal fluid drainage device; E21.3 Hyperparathyroidism, unspecified; I34.0 Nonrheumatic mitral (valve) insufficiency; Z79.01 Long term (current) use of anticoagulants; I89.0 Lymphedema, not elsewhere classified
CPT/HCPCS: 36415; 36569; 71045; 80048; 80053; 80202; 82553; 83605; 83735; 83880; 84484; 85025; 87040; 87077; 87186; 87804; 93005; 93010; 93306; 94640; 94760; 96365; 96366; 96368; A4216; C1751; J0456; J1644; J2001; J2920; J3370; J7050; J7620; J7626; Q0162

== ENCOUNTER 2018-02-04 16:06 | Emergency (ER) | payer MEDICARE, MEDICAID ==
[2018-02-04] MEDS ORDERED: diphenhydrAMINE 50 MG/ML VIAL ONE (17:15)
[2018-02-04] MEDS ORDERED: Prochlorperazine 10 MG/2 ML VIAL ONE (17:15)
[2018-02-04] MEDS ORDERED: Magnesium Sulfate 2 GM/NS 0.9% 50 ML BAG ONE (19:48)
[2018-02-04] MEDS ORDERED: methylPREDNISolone Sod Succ/PF 125 MG/2 ML VIAL ONE (19:48)
== END 2018-02-04 21:00 | disposition home or self-care (01) ==
LOC: SCSER 16:06
DX: G43.909 Migraine, unspecified, not intractable, without status migrainosus (principal); I48.91 Unspecified atrial fibrillation; I34.1 Nonrheumatic mitral (valve) prolapse; E03.9 Hypothyroidism, unspecified; E05.90 Thyrotoxicosis, unspecified without thyrotoxic crisis or storm; D64.9 Anemia, unspecified; Z86.73 Personal history of transient ischemic attack (TIA), and cerebral infarction without residual deficits; E66.9 Obesity, unspecified; Z87.891 Personal history of nicotine dependence; Z79.899 Other long term (current) drug therapy
CPT/HCPCS: 96365; 96366; 96367; 96375; J0780; J1200; J2930; J3475